=== PATIENT | male | born 1940 | race Caucasian/White ===

== ENCOUNTER → 2019-04-27 08:27 | Outpatient (BNVA) | payer OTHER, SELFPAY | PROVIDERS: Family Provider Emergency Medicine Emergency Medical Services; PCP Emergency Medicine Emergency Medical Services; Visit Provider Urology | DX: R97.20 Elevated prostate specific antigen [PSA] (principal); R33.9 Retention of urine, unspecified; N40.1 Benign prostatic hyperplasia with lower urinary tract symptoms; N13.8 Other obstructive and reflux uropathy; G20 Parkinson's disease | CPT/HCPCS: 81001; 84153 ==

== ENCOUNTER → 2019-10-27 08:41 | Outpatient (BNVA) | payer OTHER, SELFPAY | PROVIDERS: Family Provider Emergency Medicine Emergency Medical Services; PCP Emergency Medicine Emergency Medical Services; Visit Provider Urology | DX: R97.20 Elevated prostate specific antigen [PSA] (principal); N40.1 Benign prostatic hyperplasia with lower urinary tract symptoms; N13.8 Other obstructive and reflux uropathy | CPT/HCPCS: 81001; 84153 ==

== ENCOUNTER 2020-07-15 10:34 | Outpatient (CLI) | payer OTHER, SELFPAY ==
--- NOTE | 2020-07-15 10:38 | MR_ITS ---
WS: [id number] MRI LUMBAR SPINE NONCONTRAST HISTORY: LOW BACK PAIN RADIATING TO HIP COMPARISON: None available. TECHNIQUE: Sagittal and axial multisequence imaging is submitted. Mild increase in the thoracic kyphosis. Straightening of the normal lumbar lordosis. C3 retrolisthesi s by 2 mm. Mild disc space narrowing and desiccation throughout the lumbar spine. No significant desiccation at the L3-4 level within additional marrow edema in the endplates. Endplat e osteophytes and moderate disc desiccation. No acute fractures. Conus terminates normally at L1-2 disc level. L1-L2: Mild annular disc bulging and facet joint arthritis. Very mild foraminal narrowing. L2-L3: Mild annular disc bulge with osteophytic ridging and facet arthritis. Mild subarticular forami nal stenosis. L3-L4: Diffuse moderate annular disc bulging with osteophytic ridging. Moderate bilateral facet joint arthritis with ligamentum flavum hypertrophy. Mild central stenosis with moderate subarticular reces s and bilateral foraminal stenosis. L4-L5: Diffuse moderate annular disc bulging and osteophytic ridging. Moderate ligamentum flavum dise ase and facet arthritis. Mild central with moderate bilateral subarticular recess and foraminal steno sis. L5-S1: Diffuse annular disc bulging and osteophytic ridging. There is a RIGHT paracentral disc osteop hyte complex encroaching upon the ventral thecal sac. Complete effacement of fat within the LEFT fora men. Moderate to severe RIGHT foraminal stenosis. Mild central stenosis. Mild atherosclerosis aorta. Prostate gland is enlarged. MR/MR lumbar spine wo con* [id number] IMPRESSION: 1. 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 2. Moderate to severe bilateral foraminal stenosis at L5-S1, greatest on the L EFT. 3. Mild central with moderate bilateral subarticular recess and foraminal sten osis at L3-4 and L4-5 due to combination of disc and facet disease and osteophy tosis. 4. Mild bilateral subarticular foraminal stenosis at L2-3.
== END 2020-07-15 10:35 | disposition home or self-care (01) ==
LOC: RADSHAW 10:37
PROVIDERS: Family Provider Emergency Medicine Emergency Medical Services; PCP Emergency Medicine Emergency Medical Services; Visit Provider Emergency Medicine Emergency Medical Services
DX: M54.5 Low back pain (principal); M54.16 Radiculopathy, lumbar region; M51.36 Other intervertebral disc degeneration, lumbar region; M48.07 Spinal stenosis, lumbosacral region; M48.061 Spinal stenosis, lumbar region without neurogenic claudication
CPT/HCPCS: 72148

== ENCOUNTER → 2020-08-03 14:41 | Outpatient (BNVA) | payer OTHER, SELFPAY | PROVIDERS: Family Provider Emergency Medicine Emergency Medical Services; PCP Emergency Medicine Emergency Medical Services; Referring Provider Family Medicine; Visit Provider Specialist | DX: M16.0 Bilateral primary osteoarthritis of hip (principal) | CPT/HCPCS: 73502 ==

== ENCOUNTER 2020-08-04 09:20 | Outpatient (CLI) | payer OTHER, SELFPAY ==
--- NOTE | 2020-08-04 09:30 | USCV_ITS ---
Gerard Najera Age: 80 Gender: M : 1940 Exam Date: 08/04/2020 09:59 Ordering Phys: Ismael Lau DO Technologist: Christopher Parekh Exam Location: [facility] Indication: TIA Risk Factors: None Previous Vascular Surgery: None Right Brachial BP: / Left Brachial BP: / Right Left Velocity (cm/s) Spectral Plaque Velocity (cm/s) Spectral Plaque Syst/Diast Broadening Syst/Diast Broadening 53.20/ 13.30 Prox CCA 99.00 / 24.40 94.40/ 23.90 Mid CCA 66.40 / 12.20 91.00/ 18.20 Distal CCA 53.70 / 12.80 Hetro 40.80/ 12.10 Prox ICA 55.30 / 11.20 Hetro 45.00/ 13.00 Mid ICA 54.50 / 16.80 Hetro 88.50/ 25.60 Distal ICA 64.10 / 18.40 136.50 ECA 117.10 0.98 ICA/CCA 0.65 Antegrade Vertebral Antegrade 39.30/ 6.40 cm/s 43.00/ 9.40 cm/s Tri Subclavian Tri 109.8 0 CONCLUSIONS Right ICA stenosis <50%. Mild atheromatous plaque right carotid bulb/ICA. Left ICA stenosis <50%. Mild atheromatous plaque left carotid bulb/ICA. Normal antegrade Doppler flow noted in the right vertebral artery. Normal antegrade Doppler flow noted in the left vertebral artery. Miguel Amado MD (Electronically Signed) Final Date: 04 August 2020 16:35 S
== END 2020-08-04 09:21 | disposition home or self-care (01) ==
LOC: RAD 09:22
PROVIDERS: PCP Emergency Medicine Emergency Medical Services; Visit Provider Emergency Medicine Emergency Medical Services
DX: G45.9 Transient cerebral ischemic attack, unspecified (principal)
CPT/HCPCS: 93880

== ENCOUNTER 2020-08-15 10:52 | Outpatient (RCR) | payer OTHER, SELFPAY | END 2020-08-31 23:59 | disposition home or self-care (01) | LOC: SPT 10:52 | PROVIDERS: PCP Emergency Medicine Emergency Medical Services; Referring Provider Specialist; Visit Provider Specialist | DX: M70.61 Trochanteric bursitis, right hip (principal) | CPT/HCPCS: 97110; 97161 ==

== ENCOUNTER 2020-09-01 06:00 | Outpatient (RCR) | payer OTHER, SELFPAY | END 2020-10-01 23:59 | disposition home or self-care (01) | LOC: SPT 06:00 | PROVIDERS: PCP Emergency Medicine Emergency Medical Services; Referring Provider Specialist; Visit Provider Specialist | DX: M70.61 Trochanteric bursitis, right hip (principal) | CPT/HCPCS: 97110 ==

== ENCOUNTER → 2020-10-26 08:13 | Outpatient (BNVA) | payer OTHER, SELFPAY | PROVIDERS: PCP Emergency Medicine Emergency Medical Services; Visit Provider Urology | DX: N13.8 Other obstructive and reflux uropathy (principal); N40.1 Benign prostatic hyperplasia with lower urinary tract symptoms; R97.20 Elevated prostate specific antigen [PSA]; R33.9 Retention of urine, unspecified; R35.1 Nocturia | CPT/HCPCS: 81003; G0103 ==

== ENCOUNTER 2021-10-25 13:18 | Outpatient (CLI) | payer OTHER, MEDICARE, SELFPAY ==
[2021-10-25 14:24] LABS: Prostate Specific AG Urology 3.15 ng/mL (0-4)
== END 2021-10-25 13:19 | disposition home or self-care (01) ==
PROVIDERS: PCP Emergency Medicine Emergency Medical Services; Visit Provider Urology
DX: R97.20 Elevated prostate specific antigen [PSA] (principal)
CPT/HCPCS: 84153

== ENCOUNTER → 2021-10-26 08:19 | Outpatient (BNVA) | payer OTHER, MEDICARE, SELFPAY | PROVIDERS: PCP Emergency Medicine Emergency Medical Services; Visit Provider Urology | DX: N40.1 Benign prostatic hyperplasia with lower urinary tract symptoms (principal); N13.8 Other obstructive and reflux uropathy | CPT/HCPCS: 51798; 81003; 99213 ==

== ENCOUNTER → 2022-02-14 12:37 | Outpatient (BNVA) | payer OTHER, MEDICARE, SELFPAY | PROVIDERS: PCP Emergency Medicine Emergency Medical Services; Visit Provider Urology | DX: N40.1 Benign prostatic hyperplasia with lower urinary tract symptoms (principal); R31.0 Gross hematuria; N13.8 Other obstructive and reflux uropathy; I95.1 Orthostatic hypotension; R35.1 Nocturia; G20 Parkinson's disease; R97.20 Elevated prostate specific antigen [PSA] | CPT/HCPCS: 51741; 51798; 52000; 81003; 99213 ==

== ENCOUNTER → 2022-03-06 13:30 | Outpatient (BNVA) | payer OTHER, SELFPAY | PROVIDERS: PCP Emergency Medicine Emergency Medical Services; Visit Provider Internal Medicine Cardiovascular Disease | DX: I95.1 Orthostatic hypotension (principal); R94.31 Abnormal electrocardiogram [ECG] [EKG]; G20 Parkinson's disease; I49.3 Ventricular premature depolarization; I44.4 Left anterior fascicular block | CPT/HCPCS: 93005; 99214 ==

== ENCOUNTER 2022-11-14 08:36 | Emergency (ER) | payer OTHER, SELFPAY ==
[2022-11-14] VITALS (34 sets, daily range): BP systolic 140–218; BP diastolic 73–108; PULSE 68–83; RESP 16; TEMP 36.8; O2SAT 95–100
--- NOTE | 2022-11-14 09:06 | PC.PHAR ---
[facility]ED [facility] AT [facility]03 AM FOR CUR[facility] MED LIST
--- NOTE | 2022-11-14 09:09 | ED_ITS ---
HPI - Male Genitourinary General: Chief complaint: Urogenital-Male Stated complaint: [facility], blood in urine Time Seen by Provider: 11/14/22 08:39 History of Present Illness: 82-year-old male presents emergency department with his present chief complaint of ongoing hematuria has been present over the last several months per the patient has a known history of dementia as well as Parkinson's. Patient is on no blood thinning agents apparently he started bleeding about 2 m onths ago [facility] which she was seeing Dr. Garduno which is currently being worked up to be seen by urology patient does have a known history of benign prostatic hypertrophy that he is on Flomax for. Per the last night the patient did develop some clots which she had mild difficulty with urination patient is on no blood thinning agents. Per the patient has been checked out twice previously in which the urinalysis did not reveal any other underlying infection . Patient does not have any known history of underlying kidney disease or any other associated symptoms. Patient presents to the ER with present for further assessment and management. Associated symptoms: Reports hematuria; Deny nausea or vomiting Review of Systems General: Reports: 10 or more systems reviewed and unremarkable except in HPI and below Const: Denies: fever(s), chills, fatigue or malaise Eyes: Denies: change in vision or blurry vision Card: Denies: chest pain or palpitations Resp: Denies: dyspnea or productive cough GI: Denies: abdominal pain, nausea or vomiting : Reports: urinary urgency, urinary hesitancy and hematuria; Denies: flank pain Musc: Denies: extremity pain or extremity swelling Skin/Breast: Denies: rash or pruritus Neuro: Denies: headache(s) Psych: Denies: anxiety or depression Bishop/Lymph: Denies: easy bleeding All/Imm: Denies: urticaria, throat swelling or facial swelling PFSH ED PFSH: Medical History Abnormal PSA BPH with urinary obstruction Hypotension (arterial) Incomplete bladder emptying Parkinsons Syncopal episodes Surgical History History of inguinal hernia repair, bilateral History of knee replacement Family History Father Motor vehicle accident Mother , at age 91 Dementia Parkinsons disease Grandfather Cancer Denies family history of Diabetes CAD (coronary artery disease) Clotting disorder Chronic kidney disease (CKD) Suicide Anesthesia complication Bleeding disorder Lung disease Stroke Social History Smoking and tobacco status: never smoked Alcohol intake: current Alcohol intake frequency: holidays/special occasions only Substance/Drug Use: never Adopted: No Caregiver/support person: No Lives independently: No Household members: spouse Marital status: Current occupational status: retired Current gender identity: Male Physical Exam Const: COMMON NORMALS: no acute distress (Patient appears nontoxic appears in no obvious acute distress), patient oriented x3 and healthy appearing HENMT: COMMON NORMALS: normocephalic and atraumatic HEAD & SCALP: normocephalic and atraumatic Eye: COMMON NORMALS: Equal, round and reactive pupils present and EOMs intact bilaterally PUPIL: Yes Equal, round and reactive pupils present Neck/C-Spine: COMMON NORMALS: full ROM, supple and no JVD Lymph: LYMPHATIC: no lymphadenopathy noted Chest: COMMONS NORMALS: normal inspection of the chest and normal palpation of entire chest wall Resp: COMMON NORMALS: normal respiratory effort, No retractions and clear to auscultation bilaterally EFFORT & INSPECTION: Yes able to speak in complete sentences and Yes symmetric chest movement AUSCULTATION: clear to auscultation bilaterally Cardio: COMMON NORMALS: no JVD, regular rate and regular rhythm RATE: regular rate RHYTHM: regular rhythm GI: COMMON NORMALS: Normal to inspection, nondistended, normoactive bowel sounds present, Soft to palpation and non-tender INSPECTION: Yes normal to inspection PALPATION: Yes Soft to palpation : COMMON NORMALS: Yes no CVA tenderness BLADDER/KIDNEY EXAM: Yes no CVA tenderness Back/Pelvis: COMMON NORMALS: no CVA tenderness Extremity: COMMON NORMALS: normal to inspection and full ROM Neuro: COMMON NORMALS: patient oriented x3, CN's II-XII intact bilaterally, moves all extremities and no focal motor deficits Psych: COMMON NORMALS: mental status grossly normal, Normal thought process present, cooperative and normal affect THOUGHT PROCESS: Normal thought process present Skin: COMMON NORMALS: no rashes or lesions noted GENERAL SKIN EXAM: no rashes or lesions noted Course Vital Signs: Vital signs: Vital Signs Temperature 98.2 F 11/14/22 08:48 Pulse Rate 68 11/14/22 13:38 Respiratory Rate 16 11/14/22 10:08 Blood Pressure 185/96 11/14/22 14:20 Pulse Oximetry 100 11/14/22 14:20 Oxygen Delivery Me thod Room Air 11/14/22 13:38 MDM - Male Medical Decision Making Due to patient's symptoms and condition lab work and imaging will be obtained we will continue to follow. Bladder scan will also be obtained to further rule out any obvious acute urinary obstruction. Patient was not found to be obstructed retain urine is less than 50 mL patient was found have a urinary tract infection on CT imaging there does not appear to be a incidental liver cyst recommend ultrasound in which additionally there is concerns of large prostamegaly patient was provided a dose of Rocephin while in the emergency department advised prompt follow-up outpatient with primary care for further evaluation and management of the patient's prostate patient be all started on some outpatient antibiotics, advised to return the interim if he the patient's symptoms persist or worse. Patient did require several doses of antihypertensive to improve his blood pressure which resulted blood pressure was 140s over 70s I believe that this is due to patient having Parkinson's disease with tonic muscular activity. Advised that he would need to further follow-up with his primary care doctor for further evaluation of chronic antihypertensives if this continues patient otherwise re mained in stable condition with no complaints of any chest pain shortness of breath or palpitations. Lab Data 11/14/22 09:22 11/14/22 09:22 Laboratory Results WBC 5.63 10^3/uL (3.29-11.43) 11/14/22 09: RBC 4.49 10^6/uL (3.85-5.65) 11/14/22 09:22 Hgb 13.20 g/dL (11.27-16.99) 11/14/22 09:22 Hct 39.5 % (37-53) 11/14/22 09:22 MCV 88.0 fl (82-101) 11/14/22 09:22 MCH 29.4 pg (27-33) 11/14/22 09: MCHC 33.4 g/dL (30-55) 11/14/22 09: RDW 13.0 % (12.1-15.1) 11/14/22 09: Plt Count 182 10^3/cmm (157-399) 11/14/22 09:22 MPV 10.9 fL (7.4-10.4) H 11/14/22 09:22 Neut % (Auto) 66.4 % 11/14/22 09:22 Lymph % (Auto) 21.0 % 11/14/22 09:22 Stan[place]aus % (Auto) 7.6 % 11/14/22 09:22 Eos % (Auto) 3.9 % 11/14/22 09:22 Baso % (Auto) 0.7 % 11/14/22 09: Neut # (Auto) 3.74 10^3/uL (1.8-7.7) 11/14/22 09: Lymph # (Auto) 1.2 10^3/uL (0.8-4.8) 11/14/22 09:22 Stan[place]aus # (Auto) 0.4 10^3/uL (0.2-0.9) 11/14/22 09: Eos # (Auto) 0.2 10^3/uL (0.0-0.8) 11/14/22 09:22 Baso # (Auto) 0.0 10^3/uL (0.0-0.1) 11/14/22 09: Nucleated RBC % (auto) 0 % 11/14/22 09: Nucleated RBCs # 0.0 /100WBC 11/14/22 09:22 Sodium 141 mmol/L (136-145) 11/14/22 09: Potassium 4.0 mmol/L (3.5-5.1) 11/14/22 09: Chloride 105 mmol/L (98-107) 11/14/22 09: Carbon Dioxide 28 mmol/L (22-29) 11/14/22 09: Anion Gap 12.0 (5-19) 11/14/22 09: BUN 21 mg/dL (8-23) 11/14/22 09:22 Creatinine 0.8 mg/dL (0.7-1.2) 11/14/22 09:22 GFR Calculation Not Reportable 11/14/22 09:22 Glucose 93 mg/dL (65-115) 11/14/22 09:22 Calculated Osmolality 295 mOsm/kg (285-295) 11/14/22 09: Calcium 9.1 mg/dL (8.5-10.5) 11/14/22 09: Total Bilirubin 0.3 mg/dL (0.15-1.2) 11/14/22 09:22 AST 15 U/L (0-40) 11/14/22 09: ALT < 5 U/L (0-41) 11/14/22 09: Alkaline Phosphatase 40 U/L (40-130) 11/14/22 09: Total Protein 6.2 g/dL (6.6-8.7) L 11/14/22 09: Albumin 3.9 g/dL (3.5-5.2) 11/14/22 09: Globulin 2.3 g/dL (1.3-4.6) 11/14/22 09: Urine Color Red (Yellow) A 11/14/22 10:52 Urine Appearance Bloody (CLEAR) A 11/14/22 10:52 Urine pH 7 (5-7) 11/14/22 10:52 Ur Specific Mulberry 1.010 (1.005-1.030) 11/14/22 10:52 Urine Protein 1+ (Negative) H 11/14/22 10:52 Urine Glucose (UA) Norm (Normal) 11/14/22 10:52 Urine Ketones 1+ (Negative) H 11/14/22 10:52 Urine Blood 3+ (Negative) H 11/14/22 10:52 Urine Nitrate Negative (Negative) 11/14/22 10:52 Urine Bilirubin Neg (Negative) 11/14/22 10:52 Urine Urobilinogen Norm mg/dL (Negative) 11/14/22 10:52 Ur Leukocyte Esterase Trace (Negative) H 11/14/22 10:52 Urine RBC >100 /hpf (0-2) H 11/14/22 10:52 Urine WBC 5-10 /hpf (0-5) H 11/14/22 10:52 Ur Squamous Epith Cells 0-4 /hpf (0-5) H 11/14/22 10:52 Amorphous Sediment Not Reportable 11/14/22 10:52 Urine Bacteria 1+ /hpf (NONE) H 11/14/22 10:52 Discharge Plan Discharge Patient Disposition: Home Clinical Impression: Gross hematuria, Urinary tract infection, Enlarged prostate, Essential hypertension Condition: Stable Prescriptions: New levofloxacin 500 mg tablet 500 mg PO DAILY 7 Days Qty: 7 0RF No Action finasteride 5 mg tablet 5 mg PO DAILY cholecalciferol (vitamin D3) 2,000 unit tablet 2,000 unit PO DAILY carbidopa-levodopa 25-100 mg tablet 1 tab PO TID zinc 50 mg tablet 50 mg PO DAILY minocycline 50 mg capsule 50 mg PO DAILY rasagiline 1 mg tablet 1 mg PO DAILY carbidopa-levodopa 25-100 mg tablet extended release 1 tab PO TID ibuprofen 200 mg Tablet 200 mg PO Q6H PRN (Reason: Pain) Discharge Orders: Discharge ED (Routine); Ordered 11/14/22 Ordered By: Ceferino Hathaway Referrals: Ismael Lau DO [Primary Care Provider] - 1-3 days (For further referral to urology and repeat lab work to determine improvement of the patient's UTI) Discharge Diet: Regular Discharge Activity: Resume usual activity Patient Instructions: Hematuria - Male, Enlarged Prostate (BPH) (ED), Urinary Tract Infection in Men (ED), Hypertension (ED), Urinary Tract Infection in Older Adults (ED) Activity Restrictions/Additional Instructions: Please encourage drinking more water to reduce likelihood of blood clots forming and causing obstruction please further follow-up with your primary care doctor 1 to 2 days for further assessment and management and evaluation of your enlarged prostate as well as blood in your urine, as well as your high blood pressure as witnessed in the emergency department. Please take antibiotics as prescribed and please return in the interim if any of your symptoms persist or worse Coding Level of Care Code ED [employer] Consultant for Rajendra Stoll
[2022-11-14] MEDS: sodium chloride 0.9% 500 ML IV (09:27)
[2022-11-14 09:37] LABS: Basophils % 0.7 %; Eosinophils # 0.2 10^3/uL (0.0-0.8); Eosinophils % 3.9 %; Hematocrit 39.5 % (37-53); Lymphocytes # 1.2 10^3/uL (0.8-4.8); Mean Corpuscular HGB Conc 33.4 g/dL (30-55); Mean Corpuscular Hemoglobin 29.4 pg (27-33); Mean Platelet Volume 10.9 fL (7.4-10.4); Monocytes # 0.4 10^3/uL (0.2-0.9); Monocytes % 7.6 %; Neutrophils # 3.74 10^3/uL (1.8-7.7); Neutrophils % 66.4 %; Nucleated Red Blood Cells % 0 %; Platelet Count 182 10^3/cmm (157-399); Red Blood Count 4.49 10^6/uL (3.85-5.65); White Blood Count 5.63 10^3/uL (3.29-11.43)
--- NOTE | 2022-11-14 09:47 | CT_ITS ---
WS: [id number] CT ABDOMEN AND PELVIS NONCONTRAST HISTORY: hematuria TECHNIQUE: Imaging performed through the abdomen and pelvis. Coronal and sagittal reformats are submi tted. All CT scans at [facility] use at least one of these dose optimization techniques: auto mated exposure control; mA and/or kV adjustment per patient size (includes targeted exams where dose is matched to clinical indication); or iterative reconstruction. DLP: 464.22 mGy.cm COMPARISON: None available. Lower thorax: Small hiatal hernia. Otherwise negative. Mild cardiomegaly. Dependent changes Liver: Normal size liver. There are multiple low-attenuation masses within the liver. These are proba yuli cysts. The largest mass in the LEFT lobe of the liver measures 6.1 x 7.9 cm and has increased in size since 2014. Helsel units suggest this is not a simple cyst. Gallbladder: Normal gallbladder. No pericholecystic fluid or cholelithiasis. No gallbladder wall thic kening. Pancreas: Moderate diffuse atrophy. Spleen: Normal. Adrenal glands: Normal. No mass. Right kidney: Extrarenal pelvis. No obstruction. Left kidney: No obstruction. 5 mm nonobstructing calcification in the upper pole. There is an extrare nal pelvis. No ureteral calcification. Upper pole LEFT renal cyst 4.0 cm. Aorta: Moderate atherosclerotic plaque within the aorta. No aneurysm. No free fluid, intraperitoneal air or significant lymphadenopathy. GI tract: Nondistended stomach. No small bowel obstruction. Marked tortuosity of the colon with longs tanding constipation and fecal retention. No acute diverticulitis. Abdominal wall: Negative. No hernia. Pelvis: Markedly enlarged prostate gland encroaching into the urinary bladder and displacing the blad meghna. Prostate measures at least 5.9 x 6.0 cm. There is mild diffuse bladder wall thickening which is slightly asymmetric. Asymmetric thickening of the bladder wall on the RIGHT and at the base near the prostate encroachment. Osseous structures: Advanced degenerative changes throughout the lumbar spine. IMPRESSION: 1. No renal obstruction or hydronephrosis. 2. Nonobstructing LEFT renal calcification and a LEFT renal cyst. 3. Markedly enlarged prostate gland encroaching into the urinary bladder. There is asymmetric bladde r wall thickening. Uroepithelial neoplasm is not excluded. Cystoscopy recommended. Hepatic cyst. 4. There is a large low-attenuation mass in the LEFT lobe of the liver with Hounsfield units being s lightly elevated. This is probably a complex cyst. This should be evaluated by ultrasound to confirm benign cyst. 5. Fransico constipation.
[2022-11-14 10:01] LABS: Alanine Aminotransferase < 5 U/L (0-41); Albumin Level 3.9 g/dL (3.5-5.2); Alkaline Phosphatase 40 U/L (40-130); Aspartate Amino Transferase 15 U/L (0-40); Blood Urea Nitrogen 21 mg/dL (8-23); Calcium 9.1 mg/dL (8.5-10.5); Carbon Dioxide 28 mmol/L (22-29); Chloride 105 mmol/L (98-107); Globulin 2.3 g/dL (1.3-4.6); Glucose 93 mg/dL (65-115); Osmolality Calculated 295 mOsm/kg (285-295); Sodium 141 mmol/L (136-145); Total Bilirubin 0.3 mg/dL (0.15-1.2); Total Protein 6.2 g/dL (6.6-8.7)
--- NOTE | 2022-11-14 10:46 | US_ITS ---
WS: [id number] RIGHT UPPER QUADRANT ULTRASOUND HISTORY: liver cyst on ct COMPARISON: 11/14/2022 Liver: 14.0 cm in length. Liver is normal size. Multiple hepatic cysts are identified. Recently descr ibed indeterminant mass in the LEFT lobe of the liver is a cyst measuring 8.6 x 6.7 cm. This is a sim ple cyst with good through transmission. No bile duct dilatation. Normal common bile duct. Portal Vein: Normal hepatopetal flow with monophasic waveform. Gallbladder not visualized. Pancreas: Negative. Right kidney: 8.9 cm in length. Mild increased echogenicity consistent with chronic medical renal dis ease. No hydronephrosis Aorta and IVC: Unremarkable abdominal aorta and IVC. No ascites. IMPRESSION: 1. Hepatic cyst. The enlarging cyst seen on recent CT is a benign cyst. No solid hepatic masses. 2. No bile duct dilatation. 3. RIGHT chronic medical renal disease. No hydronephrosis.
[2022-11-14 11:16] LABS: Add Urine Microscopic? YES; Bilirubin Urine Neg (Negative); Blood Urine 3+ (Negative); Glucose Urine UA Norm (Normal); Ketones Urine 1+ (Negative); Leukocyte Esterase Urine Trace (Negative); Nitrate Urine Negative (Negative); Protein Urine 1+ (Negative); Urine Appearance Bloody (CLEAR); Urine Color Red (Yellow); Urobilinogen Urine Norm (Negative); pH Urine 7 (5-7)
[2022-11-14 11:17] LABS: Add Urine Culture? Yes; Bacteria Urine 1+ /hpf; RBC Urine >100 /hpf (0-2); Squamous Epithelial Cell Urine 0-4 /hpf (0-5)
[2022-11-14] MEDS: cefTRIAXone 1,000 MG in sodium chloride 0.9% (plus) 50 ML 100 MG IV (12:18)
[2022-11-14] MEDS: hyDRALAzine 20 mg/mL INJ 1 mL 5 MG IVP (13:35)
[2022-11-14] MEDS: hyDRALAzine 20 mg/mL INJ 1 mL 10 MG IVP (14:17)
== END 2022-11-14 15:20 | disposition home or self-care (01) ==
PROVIDERS: Emergency Provider Emergency Medicine; PCP Emergency Medicine Emergency Medical Services
DX: N39.0 Urinary tract infection, site not specified (principal); R31.0 Gross hematuria; N40.0 Benign prostatic hyperplasia without lower urinary tract symptoms; I10 Essential (primary) hypertension; G20 Parkinson's disease
CPT/HCPCS: 51798; 74176; 76705; 80053; 81001; 85025; 87086; 96365; 96375; 96376; 99285; J0360; J0696; J7040

== ENCOUNTER 2023-01-06 23:50 | Inpatient (IN) | payer OTHER, SELFPAY ==
[2023-01-06 23:51] VITALS: BP 173/106; PULSE 81; RESP 16; TEMP 36.7; O2SAT 100; BMI 25.8
[2023-01-07] VITALS (8 sets, daily range): BP systolic 145–202; BP diastolic 73–98; PULSE 75–94; RESP 17–19; TEMP 36.4–36.9; O2SAT 95–99
--- NOTE | 2023-01-07 00:21 | XRR_ITS ---
PROCEDURE INFORMATION: Exam: XR Left Tibia and Fibula Exam date and time: 01/07/2023 12:38 AM Age: 82 years old Clinical indication: Injury or trauma; Blunt trauma; Lower leg; Patient HX: Witnessed fall three days ago. C/O left leg numbness and unable to bear weight. History of parkinson's. ; Additional info: Fall injury TECHNIQUE: Imaging protocol: Radiologic exam of the left tibia and fibula. Views: 2 views. COMPARISON: No relevant prior studies available. FINDINGS: Bones/joints: Moderate severity multi compartment left knee joint space narrowing. Marginal osteophyte spurring. Negative for acute fractures. Soft tissues: Normal. Vasculature: Relatively diffuse calcified atherosclerotic wall plaques of the arterial system. XR/XR tibia fibula LT 2V [id number] IMPRESSION: Negative for fracture.
--- NOTE | 2023-01-07 00:21 | CTR_ITS ---
PROCEDURE INFORMATION: Exam: CT Lumbar Spine Without Contrast Exam date and time: 01/07/2023 1:55 AM Age: 82 years old Clinical indication: Injury or trauma; Blunt trauma (contusions or hematomas); Patient HX: Witnessed fall three days ago. C/O left leg numbness and unable to bear weight. History of parkinson's. ; Additional info: Fall lle numbness TECHNIQUE: Imaging protocol: Computed tomography of the lumbar spine without contrast. Radiation optimization: All CT scans at this facility use at least one of these dose optimization techniques: automated exposure control; mA and/or kV adjustment per patient size (includes targeted exams where dose is matched to clinical indication); or iterative reconstruction. REPORTING DATA: Count of CT and Cardiac NM exams in prior 12 months: This patient has received [address] and 0 known cardiac nuclear medicine studies in the 12 months prior to the current study. COMPARISON: MR lumbar spine wo con* [id number] 07/15/2020 11:00 AM RADIATION DOSE METRICS: Total DLP (mGy-cm): 1248.26 FINDINGS: Bones/joints: The lumbar spine demonstrates marked discogenic and apophyseal joint degenerative changes at multiple levels. Negative for acute lumbar spine fracture. Unremarkable lumbar spine alignment. Multilevel broad posterior intervertebral disc bulges. No levels of severe spinal canal stenosis or neural foraminal stenosis identified. Liver: Large simple cyst in the left hepatic lobe with multiple smaller simple hepatic cyst also in the left lobe and caudate lobe. Kidneys and ureters: Small nonobstructing left kidney upper pole stone. Simple exophytic left upper pole renal cortical cyst measures 4 cm x 4 cm. Bilateral collecting systems are mildly distended. Urinary bladder: Distended bladder partially included in the field of view. Soft tissues: Unremarkable. CT/CT lumbar spine wo con* [id number] IMPRESSION: Negative for acute lumbar spine pathology. COMMENTS: Consistent with the [employer]'s Incidental Findings Committee white paper (J Am Jomar Radiol 2018): Any incidental renal lesion less than 1 cm or classified as too small to characterize, or any incidental cystic renal lesion characterized as simple-appearing, is likely benign. No follow-up imaging is recommended for these lesions per consensus recommendations based on imaging criteria.
--- NOTE | 2023-01-07 00:21 | CTR_ITS ---
PROCEDURE INFORMATION: Exam: CT Head Without Contrast Exam date and time: 01/07/2023 1:52 AM Age: 82 years old Clinical indication: Injury or trauma; Blunt trauma (contusions or hematomas); Patient HX: Witnessed fall three days ago. C/O left leg numbness and unable to bear weight. History of parkinson's. ; Additional info: Lle weakness TECHNIQUE: Imaging protocol: Computed tomography of the head without contrast. Radiation optimization: All CT scans at this facility use at least one of these dose optimization techniques: automated exposure control; mA and/or kV adjustment per patient size (includes targeted exams where dose is matched to clinical indication); or iterative reconstruction. REPORTING DATA: Count of CT and Cardiac NM exams in prior 12 months: This patient has received [address] and 0 known cardiac nuclear medicine studies in the 12 months prior to the current study. COMPARISON: No relevant prior studies available. RADIATION DOSE METRICS: Total DLP (mGy-cm): 1082.04 FINDINGS: Brain: Normal. No hemorrhage. Unremarkable white matter. No mass effect. Cerebral ventricles: No ventriculomegaly. Paranasal sinuses: Visualized sinuses are unremarkable. No fluid levels. Mastoid air cells: Visualized mastoid air cells are well aerated. Bones/joints: Unremarkable. No acute fracture. Soft tissues: Unremarkable. CT/CT head wo con* [id number] IMPRESSION: No acute intracranial abnormality.
--- NOTE | 2023-01-07 00:21 | XRR_ITS ---
PROCEDURE INFORMATION: Exam: XR Chest Exam date and time: 01/07/2023 12:30 AM Age: 82 years old Clinical indication: Injury or trauma; Blunt trauma (contusions or hematomas); Patient HX: Witnessed fall three days ago. C/O left leg numbness and unable to bear weight. History of parkinson's. ; Additional info: Weakness TECHNIQUE: Imaging protocol: Radiologic exam of the chest. Views: 1 view. COMPARISON: CR XR chest 1V [id number] 09/23/2017 1:10 PM FINDINGS: Lungs: Coarse reticular interstitial lung changes bilaterally. Lungs are hypoaerated without consolidation. Pleural spaces: Unremarkable. No pleural effusion. No pneumothorax. Heart/Mediastinum: Unremarkable. No cardiomegaly. Bones/joints: Bones are demineralized without acute thoracic fracture. XR/XR chest 1V portable [id number] IMPRESSION: Negative for acute chest pathology.
--- NOTE | 2023-01-07 00:21 | XRR_ITS ---
PROCEDURE INFORMATION: Exam: XR Left Femur Exam date and time: 01/07/2023 12:38 AM Age: 82 years old Clinical indication: Injury or trauma; Blunt trauma; Thigh or upper leg; Patient HX: Witnessed fall three days ago. C/O left leg numbness and unable to bear weight. History of parkinson's. ; Additional info: Fall injury TECHNIQUE: Imaging protocol: Radiologic exam of the left femur. Views: 2 views. COMPARISON: CT kidney stone [id number] 11/14/2022 9:55 AM FINDINGS: Bones/joints: Mild severity narrowing of the left hip joint space. Moderate severity narrowing of the left knee joint space. Marginal osteophyte spurring of the joint spaces. Negative for acute fractures. Negative for dislocation. Soft tissues: Unremarkable. Vasculature: Scattered atherosclerosis. XR/XR femur LT min 2V* [id number] IMPRESSION: No acute left femur pathology.
--- NOTE | 2023-01-07 00:21 | CTR_ITS ---
PROCEDURE INFORMATION: Exam: CT Pelvis Without Contrast; Skeletal Exam date and time: 01/07/2023 1:59 AM Age: 82 years old Clinical indication: Injury or trauma; Blunt trauma (contusions or hematomas); Hip; Prior surgery; Surgery date: 6+ months; Surgery type: Inguinal hernia repair; Patient HX: Witnessed fall three days ago. C/O left leg numbness and unable to bear weight. History of parkinson's. ; Additional info: Fall lle numbness TECHNIQUE: Imaging protocol: Computed tomography of the pelvis without contrast. Exam focused on the skeleton. Radiation optimization: All CT scans at this facility use at least one of these dose optimization techniques: automated exposure control; mA and/or kV adjustment per patient size (includes targeted exams where dose is matched to clinical indication); or iterative reconstruction. REPORTING DATA: Count of CT and Cardiac NM exams in prior 12 months: This patient has received [address] and 0 known cardiac nuclear medicine studies in the 12 months prior to the current study. COMPARISON: CT kidney stone [id number] 11/14/2022 9:55 AM RADIATION DOSE METRICS: Total DLP (mGy-cm): 980.04 FINDINGS: Urinary bladder: Bladder wall is mildly thickened. Small scattered nodular areas of bladder wall thickening are seen in multiple areas. Reproductive: Moderate to severe prostatomegaly with heterogeneity of the prostate gland. Bones/joints: Negative for acute pelvic fracture. Negative for lytic bone lesion. Negative for dislocation. Moderate severity bowel hip joint space narrowing with mild marginal osteophyte spurring. Disc height loss and facet joint arthropathy in the lower lumbar spine. Soft tissues: Unremarkable. CT/CT bony pelvis [id number] IMPRESSION: 1. Negative for pelvic fracture. 2. Unusual multiple small areas of bladder wall nodular thickening. Cannot exclude the possibility of multiple intraluminal polypoid bladder masses. Correlate for hematuria. 3. Prompt outpatient urology consultation is recommended. 4. Prostatomegaly.
[2023-01-07 00:54] LABS: INR 0.86 (0.8-1.2)
[2023-01-07 00:55] LABS: Partial Thromboplastin Time 29.1 SECONDS (23.9-36.7)
[2023-01-07 00:57] LABS: Basophils % 0.5 %; Eosinophils # 0.2 10^3/uL (0.0-0.8); Eosinophils % 3.9 %; Lymphocytes # 1.7 10^3/uL (0.8-4.8); Lymphocytes % 28.7 %; Mean Corpuscular HGB Conc 32.9 g/dL (30-55); Mean Corpuscular Hemoglobin 29.5 pg (27-33); Mean Corpuscular Volume 89.8 fl (82-101); Mean Platelet Volume 11.6 fL (7.4-10.4); Monocytes # 0.6 10^3/uL (0.2-0.9); Neutrophils # 3.34 10^3/uL (1.8-7.7); Neutrophils % 56.7 %; Nucleated Red Blood Cells % 0 %; Platelet Count 175 10^3/cmm (157-399); Red Blood Count 5.01 10^6/uL (3.85-5.65); Red Cell Distribution Width 13.2 % (12.1-15.1); White Blood Count 5.89 10^3/uL (3.29-11.43)
[2023-01-07 01:02] LABS: Alanine Aminotransferase < 5 U/L (0-41); Albumin Level 4.3 g/dL (3.5-5.2); Alkaline Phosphatase 46 U/L (40-130); Anion Gap 12.3 (5-19); Aspartate Amino Transferase 27 U/L (0-40); Blood Urea Nitrogen 21 mg/dL (8-23); Calcium 9.4 mg/dL (8.5-10.5); Carbon Dioxide 29 mmol/L (22-29); Chloride 103 mmol/L (98-107); Creatine Phosphokinase 137 U/L (39-308); Creatinine Clr Calc Pharmacy 79.6446; Globulin 2.6 g/dL (1.3-4.6); Glucose 103 mg/dL (65-115); Lactic Sepsis W/Reflex 1.5 mmol/L (0.5-2.2); Osmolality Calculated 293 mOsm/kg (285-295); Potassium 4.3 mmol/L (3.5-5.1); Sodium 140 mmol/L (136-145); Total Bilirubin 0.5 mg/dL (0.15-1.2); Total Protein 6.9 g/dL (6.6-8.7)
[2023-01-07 01:54] LABS: Add Urine Microscopic? YES; Bilirubin Urine Neg (Negative); Blood Urine 3+ (Negative); Glucose Urine UA Norm (Normal); Ketones Urine 1+ (Negative); Leukocyte Esterase Urine Negative (Negative); Nitrate Urine Negative (Negative); Protein Urine Neg (Negative); Specific Gravity, Urine 1.005 (1.005-1.030); Squamous Epithelial Cell Urine RARE /hpf (0-5); Urine Appearance Clear (CLEAR); Urine Color Yellow (Yellow); Urobilinogen Urine Neg (Negative); pH Urine 7 (5-7)
[2023-01-07 01:55] LABS: Add Urine Culture? No
--- NOTE | 2023-01-07 02:39 | W.ED.EXTPRO ---
HPI - Extremity Problem General: Chief complaint: Extremity Injury, Lower Stated complaint: FALL Time Seen by Provider: 01/06/23 23:53 History of Present Illness: 82-year-old male with a history of Parkinson's disease. He presents with inability to walk after a fall on Saturday. His notes that he fell near a door frame on Saturday onto his left side. He seemed to be okay, and was able to walk Saturday. Saturday he has not been able to walk well. He nearly fell a couple of times earlier in the day, and then fell onto his couch tonight. He does not complain of pain. He does complain of instability. He has no other deficits such as upper extremity weakness, new speech or vision problems, etc. Associated symptoms: Deny chest pain or fever(s) Review of Systems Const: Denies: fever(s) ENMT: Denies: throat pain Card: Denies: chest pain or palpitations Resp: Denies: dyspnea, productive cough or non-productive cough GI: Denies: abdominal pain, nausea, vomiting or diarrhea : Reports: urinary frequency Musc: Denies: back pain Neuro: Reports: numbness in extremities and weakness in extremities; Denies: headache(s) PFSH ED PFSH: Medical History Abnormal PSA BPH with urinary obstruction Hypotension (arterial) Incomplete bladder emptying Parkinsons Syncopal episodes Surgical History History of inguinal hernia repair, bilateral History of knee replacement Family History Father Motor vehicle accident Mother , at age 91 Dementia Parkinson disease Grandfather Cancer Denies family history of Diabetes CAD (coronary artery disease) Clotting disorder Chronic kidney disease (CKD) Suicide Anesthesia complication Bleeding disorder Lung disease Stroke Social History Smoking and tobacco/nicotine status: never used tobacco/nicotine Alcohol intake: current Alcohol intake frequency: holidays/special occasions only Substance/Drug Use: never Adopted: No Caregiver/support person: No Lives independently: No Household members: spouse Marital status: Current occupational status: retired Current gender identity: Male Physical Exam Const: GENERAL APPEARANCE: cooperative and frail appearing HENMT: COMMON NORMALS: normocephalic, atraumatic and Normal external nose present HEAD & SCALP: normocephalic and atraumatic FACE & SINUS: normal facial exam and face symmetric NOSE: Normal external nose present and Normal nares present Eye: COMMON NORMALS: Equal, round and reactive pupils present and EOMs intact bilaterally PUPIL: Yes Equal, round and reactive pupils present Neck/C-Spine: GENERAL: Yes trachea midline Chest: CHEST: Yes Symmetrical chest wall rise Resp: EFFORT & INSPECTION: Yes symmetric chest movement Cardio: COMMON NORMALS: regular rate and regular rhythm RATE: regular rate RHYTHM: regular rhythm GI: COMMON NORMALS: Normal to inspection, nondistended, normoactive bowel sounds present and Soft to palpation PALPATION: Yes Soft to palpation : COMMON NORMALS: Yes no CVA tenderness BLADDER/KIDNEY EXAM: Yes no CVA tenderness Back/Pelvis: COMMON NORMALS: no CVA tenderness and no thoracic nor lumbar tenderness PELVIS: Yes no pain with anterior-posterior compression Extremity: COMMON NORMALS: full ROM NARRATIVE EXTREMITY EXAM: No deformity. No reproducible tenderness. Minimal knee joint effusion on the left. Neuro: COORDINATION/BALANCE: sresyo-ke-gauu test normal GAIT: Yes Shuffling gait present MOTOR EXAM: Pronator motor function not present and Tremors during motor activity present COORDINATION: ulblzy-[id number] test normal Psych: COMMON NORMALS: cooperative Course Vital Signs: Vital signs: Vital Signs Temperature 98.0 F 01/06/23 23:51 Pulse Rate 83 01/07/23 00:06 Respiratory Rate 16 01/06/23 23:51 Blood Pressure 202/88 01/07/23 00:06 Pulse Oximetry 99 01/07/23 00:06 Oxygen Delivery Me thod Room Air 01/06/23 23:51 MDM - Extremity (Nontraumatic) Medical Decision Making 82-year-old patient with Parkinson's disease. Although the patient does not have any deficits on strength training, he cannot walk at this point. He is a two-person assist for ambulation. Chest x-ray is negative. Thigh and tib-fib films are negative. Lumbar spine CT is negative. Head CT is negative. The patient's neurological exam is nonfocal. His laboratory is essentially normal, save mild hematuria. Of note, on CT scan the patient appears to have nodular bladder wall thickening which could be polypoid masses. He is hypertensive here. He has some degree of postural hypotension, likely related to his Parkinson's disease. Lab Data 01/07/23 00:01 01/07/23 00:01 Radiology Impressions Chest X-Ray 01/07/23 00:21 IMPRESSION: Negative for acute chest pathology. Femur X-Ray 01/07/23 00:21 IMPRESSION: No acute left femur pathology. Head CT 01/07/23 00:21 IMPRESSION: No acute intracranial abnormality. Lumbar Spine CT 01/07/23 00: IMPRESSION: Negative for acute lumbar spine pathology. COMMENTS: Consistent with the [employer]'s Incidental Findings Committee white paper (J Am Jomar Radiol 2018): Any incidental renal lesion less than 1 cm or classified as too small to characterize, or any incidental cystic renal lesion characterized as simple-appearing, is likely benign. No follow-up imaging is recommended for these lesions per consensus recommendations based on imaging criteria. Pelvis CT 01/07/23 00:21 IMPRESSION: 1. Negative for pelvic fracture. 2. Unusual multiple small areas of bladder wall nodular thickening. Cannot exclude the possibility of multiple intraluminal polypoid bladder masses. Correlate for hematuria. 3. Prompt outpatient urology consultation is recommended. 4. Prostatomegaly. Tibia/Fibula X-Ray 01/07/23 00:21 IMPRESSION: Negative for fracture. Laboratory Results WBC 5.89 10^3/uL (3.29-11.43) 01/07/23 00:01 RBC 5.01 10^6/uL (3.85-5.65) 01/07/23 00:01 Hgb 14.80 g/dL (11.27-16.99) 01/07/23 00:01 Hct 45.0 % (37-53) 01/07/23 00:01 MCV 89.8 fl (82-101) 01/07/23 00:01 MCH 29.5 pg (27-33) 01/07/23 00:01 MCHC 32.9 g/dL (30-55) 01/07/23 00:01 RDW 13.2 % (12.1-15.1) 01/07/23 00:01 Plt Count 175 10^3/cmm (157-399) 01/07/23 00:01 MPV 11.6 fL (7.4-10.4) H 01/07/23 00:01 Neut % (Auto) 56.7 % 01/07/23 00:01 Lymph % (Auto) 28.7 % 01/07/23 00:01 [place] % (Auto) 10.0 % 01/07/23 00:01 Eos % (Auto) 3.9 % 01/07/23 00:01 Baso % (Auto) 0.5 % 01/07/23 00:01 Neut # (Auto) 3.34 10^3/uL (1.8-7.7) 01/07/23 00:01 Lymph # (Auto) 1.7 10^3/uL (0.8-4.8) 01/07/23 00:01 [place] # (Auto) 0.6 10^3/uL (0.2-0.9) 01/07/23 00:01 Eos # (Auto) 0.2 10^3/uL (0.0-0.8) 01/07/23 00:01 Baso # (Auto) 0.0 10^3/uL (0.0-0.1) 01/07/23 00:01 Nucleated RBC % (auto) 0 % 01/07/23 00:01 Nucleated RBCs # 0.0 /100WBC 01/07/23 00:01 PT 12.00 SECONDS (12.1-14.9) L 01/07/23 00:01 INR 0.86 (0.8-1.2) 01/07/23 00:01 APTT 29.1 SECONDS (23.9-36.7) 01/07/23 00:01 Sodium 140 mmol/L (136-145) 01/07/23 00:01 Potassium 4.3 mmol/L (3.5-5.1) 01/07/23 00:01 Chloride 103 mmol/L (98-107) 01/07/23 00:01 Carbon Dioxide 29 mmol/L (22-29) 01/07/23 00:01 Anion Gap 12.3 (5-19) 01/07/23 00:01 BUN 21 mg/dL (8-23) 01/07/23 00:01 Creatinine 0.8 mg/dL (0.7-1.2) 01/07/23 00:01 GFR Calculation Not Reportable 01/07/23 00:01 Glucose 103 mg/dL (65-115) 01/07/23 00:01 Calculated Osmolality 293 mOsm/kg (285-295) 01/07/23 00:01 Lactic Acid 1.5 mmol/L (0.5-2.2) 01/07/23 00:01 Calcium 9.4 mg/dL (8.5-10.5) 01/07/23 00:01 Total Bilirubin 0.5 mg/dL (0.15-1.2) 01/07/23 00:01 AST 27 U/L (0-40) 01/07/23 00:01 ALT < 5 U/L (0-41) 01/07/23 00:01 Alkaline Phosphatase 46 U/L (40-130) 01/07/23 00:01 Creatine Kinase 137 U/L (39-308) 01/07/23 00:01 Total Protein 6.9 g/dL (6.6-8.7) 01/07/23 00:01 Albumin 4.3 g/dL (3.5-5.2) 01/07/23 00:01 Globulin 2.6 g/dL (1.3-4.6) 01/07/23 00:01 Urine Color Yellow (Yellow) 01/07/23 01:26 Urine Appearance Clear (CLEAR) 01/07/23 01:26 Urine pH 7 (5-7) 01/07/23 01:26 Ur Specific [place] 1.005 (1.005-1.030) 01/07/23 01:26 Urine Protein Neg (Negative) 01/07/23 01:26 Urine Glucose (UA) Norm (Normal) 01/07/23 01:26 Urine Ketones 1+ (Negative) H 01/07/23 01:26 Urine Blood 3+ (Negative) H 01/07/23 01:26 Urine Nitrate Negative (Negative) 01/07/23 01:26 Urine Bilirubin Neg (Negative) 01/07/23 01:26 Urine Urobilinogen Neg mg/dL (Negative) 01/07/23 01:26 Ur Leukocyte Esterase Negative (Negative) 01/07/23 01:26 Urine RBC 5-10 /hpf (0-2) H 01/07/23 01:26 Urine WBC None /hpf (0-5) 01/07/23 01:26 Ur Squamous Epith Cells Rare /hpf (0-5) 01/07/23 01:26 Amorphous Sediment Not Reportable 01/07/23 01:26 Urine Bacteria None /hpf (NONE) 01/07/23 01:26 All radiology interpretation(s) finalized by discharge Discharge Plan Discharge Patient Disposition: Placed in Observation Clinical Impression: Weakness generalized Coding Level of Care Code ED Quill Reamer for Rajendra Stoll
--- NOTE | 2023-01-07 03:17 | ECG_ITS ---
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 Measurements Intervals [place] Rate: 80 P: 60 ID: [id number] QRS: -59 QRSD: 134 T: 71 QT: 395 QTc: 457 Interpretive Statements SINUS RHYTHM WITH FIRST DEGREE AV BLOCK POSSIBLE LEFT ATRIAL ENLARGEMENT [-0.1mV P-WAVE IN V1/V2] LEFT AXIS DEVIATION [QRS AXIS < -30] INTRAVENTRICULAR CONDUCTION DELAY [130+ ms QRS DURATION] POSSIBLE LEFT VENTRICULAR HYPERTROPHY [VOLTAGE CRITERIA PLUS LAE OR QRS WIDENING] POSSIBLE SEPTAL MYOCARDIAL INFARCTION , PROBABLY OLD [30 ms Q WAVE IN V1/V2] Compared to ECG 09/23/2017 13:11:43 First degree AV block now present Left-axis deviation now present Intraventricular conduction delay now present Left anterior fascicular block no longer present Myocardial infarct finding still present Electronically Signed On 01-07-2023 9:54:37 BASEBALL SCOUT by Roman Vences M.D. [id number]
[2023-01-07] MEDS: enoxaparin 40 mg/0.4 mL Syringe SUBCUT (06:16)
--- NOTE | 2023-01-07 06:21 | P.HP_ITS ---
Providers/Chief Complaint Admitting Physician: Yadira Hendricks MD Primary Care Provider: Ismael Lau DO Chief Complaint: FALL History of Present Illness Gerard Najera is a 82 year old male with PMH orthostatic hypotension, Parkinson's Disease and syncope presented to the emergency room today with chief complaints of having sustained a fall at home. Patient states that he went into the bathroom and fell to the floor, then his went in after him, tried to get him up but he was overall very weak. She needed the assistance of her son to get him up and bring him back to bed. Since then patient has continued to feel extremely weak. He is able to move all extremities in bed however on attempting to get out of bed he feels extremely dizzy and uncoordinated and is unable to walk since then. Patient has a past history of Parkinson's with severe tremors. states that patient typically is independent with his ambulation. They walk up and down their street 3 times per week. Patient does not use any walker or canes at baseline, however since Saturday he has needed the assistance of a walker, even then he is unable to walk. Patient denies any tinnitus. Denies any recent fever or chills. He does have a home health aide who has been sick over the past week with what appears to be acute viral illness. There is no complaints of coryza, cough, chest pain, palpitations prior to this episode. Review of Systems General: Reports: 10 or more systems reviewed and unremarkable except in HPI and below Const: Denies: fever(s), chills or body aches Eyes: Denies: change in vision, blurry vision or photophobia ENMT: Reports: hoarseness; Denies: throat pain, enlarged tonsils, odynophagia or nasal congestion Card: Denies: chest pain, palpitations, irregular heart rhythm, edema, swelling of feet/ankles, lightheadedness, pre-syncope, dyspnea on exertion or orthopnea Resp: Denies: dyspnea, productive cough, non-productive cough, wheezing, stridor, pain on inspiration, change in phlegm color, hemoptysis or chest congestion GI: Denies: abdominal pain, nausea, vomiting, hematemesis, coffee ground emesis, dysphagia, heartburn, diarrhea, constipation, GI cramping, change in stool character, hematochezia or melena : Denies: flank pain, dysuria, urinary frequency, urinary urgency, urinary hesitancy or hematuria Musc: Denies: neck pain, back pain, extremity pain, joint swelling, joint warmth or deformity Neuro: Denies: headache(s), numbness in extremities, weakness in extremities, sensory changes, difficulty walking, frequent falls, dizziness, vertigo, behavioral changes, Slurred speech present or seizure-like activity Psych: Denies: anxiety, depression, suicidal ideation or homicidal ideation Endo: Denies: polyuria, polydipsia, tired all the time, cold intolerance or hot flashes [place]/Lymph: Denies: easy bruising or easy bleeding Medications/Allergies Home Medications Medication Instructions Recorded Confirmed Last Taken Type cholecalciferol (vitamin D3) 50 2,000 unit PO DAILY 04/27/19 01/07/23 01/06/23 20:00 History mcg (2,000 unit) tablet finasteride 5 mg tablet 5 mg PO DAILY 04/27/19 01/07/23 01/06/23 20:00 History carbidopa 25 mg-levodopa 100 mg 1 tab PO BID 03/07/20 01/07/23 01/06/23 20:00 History tablet minocycline 50 mg capsule 50 mg PO DAILY 03/07/20 01/07/23 01/06/23 20:00 History rasagiline 1 mg tablet 1 mg PO DAILY 08/03/20 01/07/23 01/06/23 20:00 History ibuprofen 200 mg tablet 200 mg PO Q6H PRN Pain 11/14/22 01/07/23 01/06/23 20:00 History carbidopa ER 50 mg-levodopa 200 mg 1 tab PO TID 01/07/23 01/07/23 01/06/23 20:00 History tablet,extended release Allergies Allergy/AdvReac Type Severity Reaction Status Date / Time ropinirole Allergy Unknown Unknown Verified 01/06/23 23:57 Sulfa (Sulfonamide Allergy Unknown Unknown Verified 01/06/23 23:57 Antibiotics) PFSH Acute PFSH: Medical History Abnormal PSA BPH with urinary obstruction Hypotension (arterial) Incomplete bladder emptying Parkinsons Syncopal episodes Surgical History History of inguinal hernia repair, bilateral History of knee replacement Family History Father Motor vehicle accident Mother , at age 91 Dementia Parkinson disease Grandfather Cancer Denies family history of Diabetes CAD (coronary artery disease) Clotting disorder Chronic kidney disease (CKD) Suicide Anesthesia complication Bleeding disorder Lung disease Stroke Social History Smoking and tobacco/nicotine status: never used tobacco/nicotine Alcohol intake: current Alcohol intake frequency: holidays/special occasions only Substance/Drug Use: never Adopted: No Caregiver/support person: No Lives independently: No Household members: spouse Marital status: Current occupational status: retired Current gender identity: Male Vitals/I&O/Wt Last Vital Signs Temp 97.8 F 01/07/23 04:53 Pulse 83 01/07/23 04:53 Resp 17 01/07/23 04:53 BP 170/92 01/07/23 04:53 Pulse Ox 99 01/07/23 04:53 O2 Del Method Room Air 01/07/23 04:53 01/06/23 01/06/23 01/07/23 14:59 22:59 06:59 Intake Total 480 / 480 Balance 480 / 480 Weight last 48 hrs Weight 81.647 kg Physical Exam Narrative: General: No acute distress, AO x3 HEENT: PERRLA, pupils bilaterally equal and reactive, pallors not present Chest: Normal vesicular breath sounds, no added sounds, equal good air entry bilaterally CVS: S1-S2 regular, no murmurs, no tachycardia, no gallops, no rubs Abdomen: Soft, nontender, no organomegaly, bowel sounds present Neuro: No focal deficits, moves all extremities appropriately when laying in bed, However attempts to sit up in bed and to stand up on needing a two-person assist currently. Data 01/07/23 00:01 01/07/23 00:01 Other data: Radiology Impressions Chest X-Ray 01/07/23 00:21 IMPRESSION: Negative for acute chest pathology. Femur X-Ray 01/07/23 00:21 IMPRESSION: No acute left femur pathology. Head CT 01/07/23 00:21 IMPRESSION: No acute intracranial abnormality. Lumbar Spine CT 01/07/23 00:21 IMPRESSION: Negative for acute lumbar spine pathology. COMMENTS: Consistent with the [employer]'s Incidental Findings Committee white paper (J Am Jomar Radiol 2018): Any incidental renal lesion less than 1 cm or classified as too small to characterize, or any incidental cystic renal lesion characterized as simple-appearing, is likely benign. No follow-up imaging is recommended for these lesions per consensus recommendations based on imaging criteria. Pelvis CT 01/07/23 00:21 IMPRESSION: 1. Negative for pelvic fracture. 2. Unusual multiple small areas of bladder wall nodular thickening. Cannot exclude the possibility of multiple intraluminal polypoid bladder masses. Correlate for hematuria. 3. Prompt outpatient urology consultation is recommended. 4. Prostatomegaly. Tibia/Fibula X-Ray 01/07/23 00:21 IMPRESSION: Negative for fracture. Laboratory Results WBC 5.89 10^3/uL (3.29-11.43) 01/07/23 00:01 RBC 5.01 10^6/uL (3.85-5.65) 01/07/23 00:01 Hgb 14.80 g/dL (11.27-16.99) 01/07/23 00:01 Hct 45.0 % (37-53) 01/07/23 00:01 MCV 89.8 fl (82-101) 01/07/23 00:01 MCH 29.5 pg (27-33) 01/07/23 00:01 MCHC 32.9 g/dL (30-55) 01/07/23 00:01 RDW 13.2 % (12.1-15.1) 01/07/23 00:01 Plt Count 175 10^3/cmm (157-399) 01/07/23 00:01 MPV 11.6 fL (7.4-10.4) H 01/07/23 00:01 Neut % (Auto) 56.7 % 01/07/23 00:01 Lymph % (Auto) 28.7 % 01/07/23 00:01 [place] % (Auto) 10.0 % 01/07/23 00:01 Eos % (Auto) 3.9 % 01/07/23 00:01 Baso % (Auto) 0.5 % 01/07/23 00:01 Neut # (Auto) 3.34 10^3/uL (1.8-7.7) 01/07/23 00:01 Lymph # (Auto) 1.7 10^3/uL (0.8-4.8) 01/07/23 00:01 [place] # (Auto) 0.6 10^3/uL (0.2-0.9) 01/07/23 00:01 Eos # (Auto) 0.2 10^3/uL (0.0-0.8) 01/07/23 00:01 Baso # (Auto) 0.0 10^3/uL (0.0-0.1) 01/07/23 00:01 Nucleated RBC % (auto) 0 % 01/07/23 00:01 Nucleated RBCs # 0.0 /100WBC 01/07/23 00: PT 12.00 SECONDS (12.1-14.9) L 01/07/23 00:01 INR 0.86 (0.8-1.2) 01/07/23 00:01 APTT 29.1 SECONDS (23.9-36.7) 01/07/23 00:01 Sodium 140 mmol/L (136-145) 01/07/23 00:01 Potassium 4.3 mmol/L (3.5-5.1) 01/07/23 00:01 Chloride 103 mmol/L (98-107) 01/07/23 00:01 Carbon Dioxide 29 mmol/L (22-29) 01/07/23 00:01 Anion Gap 12.3 (5-19) 01/07/23 00:01 BUN 21 mg/dL (8-23) 01/07/23 00:01 Creatinine 0.8 mg/dL (0.7-1.2) 01/07/23 00:01 GFR Calculation Not Reportable 01/07/23 00: Glucose 103 mg/dL (65-115) 01/07/23 00:01 Calculated Osmolality 293 mOsm/kg (285-295) 01/07/23 00:01 Lactic Acid 1.5 mmol/L (0.5-2.2) 01/07/23 00:01 Calcium 9.4 mg/dL (8.5-10.5) 01/07/23 00:01 Total Bilirubin 0.5 mg/dL (0.15-1.2) 01/07/23 00:01 AST 27 U/L (0-40) 01/07/23 00:01 ALT < 5 U/L (0-41) 01/07/23 00:01 Alkaline Phosphatase 46 U/L (40-130) 01/07/23 00:01 Creatine Kinase 137 U/L (39-308) 01/07/23 00:01 Total Protein 6.9 g/dL (6.6-8.7) 01/07/23 00:01 Albumin 4.3 g/dL (3.5-5.2) 01/07/23 00:01 Globulin 2.6 g/dL (1.3-4.6) 01/07/23 00:01 Urine Color Yellow (Yellow) 01/07/23 01:26 Urine Appearance Clear (CLEAR) 01/07/23 01:26 Urine pH 7 (5-7) 01/07/23 01:26 Ur Specific [place] 1.005 (1.005-1.030) 01/07/23 01:26 Urine Protein Neg (Negative) 01/07/23 01:26 Urine Glucose (UA) Norm (Normal) 01/07/23 01:26 Urine Ketones 1+ (Negative) H 01/07/23 01:26 Urine Blood 3+ (Negative) H 01/07/23 01:26 Urine Nitrate Negative (Negative) 01/07/23 01:26 Urine Bilirubin Neg (Negative) 01/07/23 01:26 Urine Urobilinogen Neg mg/dL (Negative) 01/07/23 01:26 Ur Leukocyte Esterase Negative (Negative) 01/07/23 01:26 Urine RBC 5-10 /hpf (0-2) H 01/07/23 01:26 Urine WBC None /hpf (0-5) 01/07/23 01:26 Ur Squamous Epith Cells Rare /hpf (0-5) 01/07/23 01:26 Amorphous Sediment Not Reportable 01/07/23 01:26 Urine Bacteria None /hpf (NONE) 01/07/23 01:26 A&P Assessment and plan (1) Weakness generalized: (2) Dizziness: (3) Ataxia: (4) Parkinsons: Plan 82-year-old male presenting with a syncopal episode at home on Saturday, thereafter followed by increased generalized weakness, ataxia, dizziness, now needing assistance to walk whereas per reports he was previously able to ambulate independently. He does have significant tremors related to Parkinson's, however per his he is usually able to ambulate without any assistive devices. See the head without any acute intracranial events. X-ray of lower extremities and lumbar CT without any acute fractures. Patient is able to currently able to move all extremities against gravity and against resistance while laying in bed, however feels unsteady upon getting up. Check orthostatics, patient has a past history of orthostatic hypotension. Normal saline at 75 cc an hour MRI brain to evaluate for potentially posterior circulation stroke as a cause of persistent dizziness and ataxia. Alternate possibility is that of acute labyrinthitis related to viral illness, check respiratory viral panel, he does have a history of sick contacts in the past week. Unable to assess if patient has had any new hearing loss as he is significantly hard of hearing at baseline. Most of the history is given by his due to his inability to hear conversation properly. CPK negative for rhabdomyolysis check TSH and random cortisol PT OT assessment Attestations Medical Necessity Statement*: > less than 2 midnight stay anticipated at this time Coding Level of Care Code Acute Code for Chg Fwd Moderate MDM includes number and complexity of problems actively addressed during encounter, amount and/or complexity of data reviewed/ordered and described risk of complication, morbidity or mortality of management as documented Diagnoses Weakness generalized R53.1 Dizziness R42 Ataxia R27.0 Parkinsons G20
[2023-01-07] MEDS: sodium chloride 0.9% 1,000 ML 75 ML IV ×2 (06:34→20:22)
--- NOTE | 2023-01-07 06:41 | USCV_ITS ---
Gerard Najera Age: 82 Gender: M : 1940 Exam Date: 01/07/2023 14:36 Ordering Phys: Yadira Hendricks MD Technologist: Christopher Parekh [place] [facility] [place]: cva BP: 134 / 74 HR: 86 Rhythm: Sinus Technical Quality: Adequate MEASUREMENTS (Male / Female) Normal Values 2D ECHO LV Diastolic Diameter PLAX 4.3 cm 4.2 - 5.9 / 3.9 - 5.3 cm LV Systolic Diameter PLAX 2.4 cm IVS Diastolic Thickness 1.0 cm 0.6 - 1.0 / 0.6 - 0.9 cm IVS Systolic Thickness 1.2 cm LVPW Diastolic Thickness 1.0 cm 0.6 - 1.0 / 0.6 - 0.9 cm LVPW Systolic Thickness 1.2 cm LVOT Diameter 2.1 cm LV Ejection Fraction 2D Teich 76.0 % LA Diameter 3.8 cm M-MODE Aortic Annulus Diameter 4.1 cm LA Ao Ratio MM 1.0 MV E Point Septal Separation 0.9 cm DOPPLER AV Peak Velocity 130.0 cm/s LVOT Peak Velocity 108.0 cm/s AV Area Cont Eq vti 3.9 cm squared AV Area Cont Eq pk 2.8 cm squared MV E' Velocity 7.0 cm/s TR Peak Velocity 132.7 cm/s TR Peak Gradient 7.0 mmHg TV Peak E Velocity 74.0 cm/s Right Atrial Pressure 3.0 mmHg Pulmonary Artery Systolic Pressu 10.0 mmHg FINDINGS Left Ventricle Left ventricle is normal in size. LV systolic function is normal with EF of 55-60%. No regional wall motion abnormalities are seen. Grade 1 diastolic dysfunction Right Ventricle Normal in size and function Right Atrium Normal in size Left Atrium Normal in size Mitral Valve Mild mitral annular calcification. Aortic Valve Aortic valve is thickened. No significant stenosis or regurgitation. Tricuspid Valve Mild tricuspid regurgitation. Insufficient TR jet to calculate RVSP. Pulmonic Valve Not well-visualized Pericardium Normal Aorta Normal in size IVC Not well visualized CONCLUSIONS LV systolic function is normal with EF of 55-60%. Grade 1 diastolic dysfunction. Mild tricuspid regurgitation Compared to prior echocardiogram from 2018 no significant changes are seen Roman Vences MD (Electronically Signed) Final Date: 07 January 2023 18:03 S
[2023-01-07 07:11] LABS: Thyroid Stimulating Hormone 1.89 uIU/mL (0.27-4.20)
[2023-01-07] MEDS: pantoprazole DR 40 mg Tablet PO (08:34)
[2023-01-07] MEDS: finasteride 5 mg Tablet PO (08:34)
[2023-01-07] MEDS: carbidopa-levodopa 25-100mg Tablet 1 EACH PO ×2 (08:34→18:02)
[2023-01-07] MEDS: carbidopa-levodopa ER 50-200mg Tablet 1 EACH PO ×3 (08:34→20:22)
[2023-01-07 08:35] LABS: Cortisol Random 16.31 ug/dL (2.47-19.5)
--- NOTE | 2023-01-07 10:59 | USCV_ITS ---
Gerard Najera Age: 82 Gender: M : 1940 Exam Date: 01/07/2023 14:46 Ordering Phys: Vance Woods MD Technologist: Christopher Parekh [place] [facility] [place]: cva Risk Factors: Previous Vascular Surgery: Right Brachial BP: / Left Brachial BP: / Right Left Velocity (cm/s) Spectral Plaque Velocity (cm/s) Spectral Plaque Syst/Diast Broadening Syst/Diast Broadening 42.20/ 8.90 Prox CCA 87.65 / 13.75 71.00/ 14.50 Mid CCA 70.05 / 16.50 73.60/ 14.50 Distal CCA 67.80 / 18.15 48.90/ 12.40 Prox ICA 47.00 / 13.60 76.90/ 24.90 Mid ICA 38.80 / 8.90 63.70/ 17.90 Distal ICA 66.80 / 19.80 124.90 ECA 110.30 1.04 ICA/CCA 0.76 Antegrade Vertebral Antegrade 40.40/ 7.80 cm/s 25.60/ 6.10 cm/s Tri Subclavian Tri 101.6 101.6 0 0 CONCLUSIONS Right ICA stenosis <50%. Moderate calcified atheromatous plaque right carotid bulb/ICA. Left ICA stenosis <50%. Moderate calcified atheromatous plaque left carotid bulb/ICA. Intimal thickening in the common carotid arteries and internal carotid arteries bilaterally. Normal antegrade Doppler flow noted in the right vertebral artery. Normal antegrade Doppler flow noted in the left vertebral artery. Miguel Amado MD (Electronically Signed) Final Date: 08 January 2023 10:33 S
--- NOTE | 2023-01-07 11:01 | USCV_ITS ---
ReinaldoGerard slater Age: 82 Gender: M : 1940 Exam Date: 01/07/2023 15:04 Ordering Phys: Vance Woods MD Technologist: Christopher Parekh Exam Location: [facility] – [place] Indication: leg pain Risk Factors: Previous Vascular Surgery: RIGHT LEFT BP: 130.0 / 70.00 BP: 130.0/ 70.00 0 0 Waveform Velocity (cm/s) Velocity (cm/s) Waveform Biphasic 77.7 Iliac Prox 143.9 Biphasic Biphasic 83.9 Iliac Mid 129.5 Biphasic Biphasic 87.8 Iliac Distal 127.7 Biphasic Biphasic 80.8 UNIFORM DESIGNER 145.7 Biphasic Biphasic 82.3 SFA Prox 127.7 Biphasic Biphasic 69.9 SFA Mid 147.5 Biphasic Biphasic SFA Dist Biphasic 83.9 140.3 Biphasic 42.1 POP 55.2 Biphasic Biphasic 54.0 BALANCE WHEEL SCREW HOLE TAPPER 69.1 Biphasic Biphasic 74.9 DPA 63.7 Biphasic 1.0 RIANNA 1.0 FINDINGS Resting RIANNA 1.0 bilaterally. Intimal thickening and minimal plaques in the femoral and popliteal arteries bilaterally Normal Doppler flow velocities with a biphasic Doppler waveforms CONCLUSIONS 1. Normal resting ABIs bilaterally suggesting no significant arterial obstruction. 2. Intimal thickening and minimal plaques in the femoral and popliteal arteries bilaterally 3. No significant arterial obstruction, based on the above findings Dr Sahara Schmitz MD [facility] (Electronically Signed) Final Date: 08 January 2023 20:23 S
--- NOTE | 2023-01-07 11:04 | MR_ITS ---
WS: [id number] MRI HEAD WITH CONTRAST TECHNIQUE: Sagittal T1, T2 axial, T2 axial FLAIR, axial susceptibility weighted imaging, axial diffus ion weighted images, and coronal T2 images were obtained. Pre and post-T1 axial and post T1 coronal i mages. ADC and FSPGR images. CLINICAL INFORMATION: syncope COMPARISON: CT 01/07/23 FINDINGS: Small focus of restricted diffusion in the RIGHT lateral thalamus along the posterior limb RIGHT inte rnal capsule measuring 8.3 mm compatible with acute ischemia. Mild associated edema. No mass effect o r midline shift. No other foci of restricted diffusion. Moderate supratentorial small vessel changes. Mild small vessel changes in the doug. Moderate parench ymal volume loss. Normal posterior fossa. Normal vascular flow voids at the skull base. No extra-axia l fluid collections. No evidence of mass or mass effect. Paranasal sinuses are well aerated. Mucosal thickening in the ethmoid air cells and frontal ethmoidal recesses. Mastoid air cells are well aerate d. Normal optic chiasm and pituitary infundibulum. Moderate symmetric atrophy temporal lobes and hippoca mpal formations. No hemosiderin on the susceptibly weighted images. No abnormal gadolinium enhancement. Normal dural v enous sinuses. IMPRESSION: 1. 8 mm focus of acute ischemia along the RIGHT lateral thalamus and posterior limb of RIGHT interna l capsule. 2. No other foci of acute ischemia. 3. Moderate small vessel changes moderate parenchymal volume loss. Small vessel changes in the doug. 4. Moderate symmetric atrophy temporal lobes hippocampal formations. 5. No abnormal gadolinium enhancement. Notified Dr. Thorne at 01/07/2023 1:57 PM.
--- NOTE | 2023-01-07 11:55 | P.CONIM_ITS ---
Providers/Reason For Consult Consulting Physician/Specialty*: Vance Woods MD neurology and epilepsy Reason for Consult*: 82-year-old male with history of Parkinson disease with reports of paroxysmal episodes described as numbness and weakness in the left leg with falling without alteration in consciousness or back pain and reports of some mental confusion following the falling episode that occurred on 01/06/2023 Attending Physician: Александр Thorne MD Primary Care Provider: Ismael Lau DO History of Present Illness History of Present Illness Gerard Najera is a 82 year old male with a history of hypotension with syncopal episodes during ambulation addressed by cardiology in the past and diagnosed with syncope, Parkinson disease diagnosed approximately 3 to 4 years after the patient began experiencing syncopal episodes, benign prostate hypertrophy with urinary obstruction, and osteoarthritis of the left hip. According to the patient's and daughter who was present at the patient's bedside, the patient was in his usual state of health and doing well prior to admission. The patient stated that they routinely take walks and the zhen ent participates at the recreational center. On 01/04/2023 the patient experienced a recurrent syncopal episode preceded by dizziness with while standing and leaning against the bathroom door. According to the patient's the patient did not actually lose consciousness but suddenly dropped to the floor. The patient's stated that she assisted the patient up from the floor and assisted him to bed and he slept for several hours and then arose and was doing okay. On 01/05/2023 the patient was doing well and went to bed early. She stated the patient was also doing okay Saturday night on 01/05/2023. On Saturday morning on 01/06/2023 the patient got up to use the bathroom and was okay but later that day he again got up to walk with his walker and was displaying difficulty ambulating with magnetic gait in the left lower extremity. The patient stated that he has been experiencing paroxysmal episodes of numbness and weakness in the left leg when standing and he feels as though he is about to fall he will call out to the family and then lose tone in the left lower extremity. The patient denied any back pain. The family called 911 and the patient was brought to the hospital on 01/06/2023 around midnight and was admitted. Head CT scan performed on 01/07/2023 was reported to be negative for any acute findings. Lumbar CT scan was also obtained on 01/07/2023 and reported to be negative. Currently the patient is alert and oriented to person place and situation. He recognize his and daughter and was able to tell me their names. Patient is cooperative. Currently he denies any weakness or pain. The family informing the patient was diagnosed with Parkinson disease by a neurologist in [place]. The patient was on Sinemet 25/100 mg tablets 3 times a day but on 11/16/2022 Sinemet 50/200 mg tablets 3 times a day was started and Sinemet 25/100 mg tablets were decreased to 1 twice a day. Patient was continued on rasagiline 1 mg p.o. daily. Past medical history: Syncope, addressed by cardiology in the past Parkinson disease diagnosed by a neurologist in [facility] Hypotension Osteoarthritis of left hip Benign prostate hypertrophy with urinary obstruction Drug allergies: Ropinirole type of reaction unknown Sulfonamide antibiotics type reaction unknown Current medications: Sinemet 25/100 mg tablets 1 p.o. twice daily Sinemet 50/200 mg tablets 1 p.o. 3 times daily Rasagiline 1 mg p.o. daily Vistaril 10 mg p.o. nightly Minocycline 50 mg p.o. daily for rosacea Vitamin D3 2000 international units p.o. daily Finasteride 5 mg p.o. daily for bladder Magnesium 350 mg p.o. daily Ibuprofen 200 mg p.o. every 6 hours as needed pain Habits: None Family history: Remarkable for a mother with questionable Parkinson disease Review of Systems General: Reports: 10 or more systems reviewed and unremarkable except in HPI and below Medications/Allergies Home Medications Medication Instructions Recorded Confirmed Last Taken Type cholecalciferol (vitamin D3) 50 2,000 unit PO DAILY 04/27/19 01/07/23 01/06/23 20:00 History mcg (2,000 unit) tablet finasteride 5 mg tablet 5 mg PO DAILY 04/27/19 01/07/23 01/06/23 20:00 History carbidopa 25 mg-levodopa 100 mg 1 tab PO BID 03/07/20 01/07/23 01/06/23 20:00 History tablet minocycline 50 mg capsule 50 mg PO DAILY 03/07/20 01/07/23 01/06/23 20:00 History rasagiline 1 mg tablet 1 mg PO DAILY 08/03/20 01/07/23 01/06/23 20:00 History ibuprofen 200 mg tablet 200 mg PO Q6H PRN Pain 11/14/22 01/07/23 01/06/23 20:00 History carbidopa ER 50 mg-levodopa 200 mg 1 tab PO TID 01/07/23 01/07/23 01/06/23 20:00 History tablet,extended release Allergies Allergy/AdvReac Type Severity Reaction Status Date / Time ropinirole Allergy Unknown Unknown Verified 01/06/23 23:57 Sulfa (Sulfonamide Allergy Unknown Unknown Verified 01/06/23 23:57 Antibiotics) Current Medications Generic Name Dose Route Start Last Admin Trade Name Freq PRN Reason Stop Dose Admin Carbidopa/Levodopa 1 each 01/07/23 09:00 01/07/23 08:34 Carbidopa-Levodopa 25-100mg Tablet PO 1 each BID SOHEILA Administration Carbidopa/Levodopa 1 each 01/07/23 09:00 01/07/23 08:34 Carbidopa-Levodopa Er 50-200mg Tablet PO 1 each TID SOHEILA Administration Enoxaparin Sodium 40 mg 01/07/23 05:45 01/07/23 06:16 Enoxaparin 40 Mg/0.4 Ml Syringe SUBCUT 40 mg Q24H SOHEILA Administration Finasteride 5 mg 01/07/23 09:00 01/07/23 08:34 Finasteride 5 Mg Tablet PO 5 mg DAILY SOHEILA Administration Sodium Chloride 1,000 mls @ 75 mls/hr 01/07/23 06:30 01/07/23 06:34 Sodium Chloride 0.9% IV 75 mls/hr .[id number] SOHEILA Administration Non-Formulary Medication 50 mg 01/07/23 09:00 01/07/23 08:42 Minocycline PO Not Given DAILY SOHEILA Non-Formulary Medication 1 mg 01/07/23 09:00 01/07/23 08:42 Rasagiline PO Not Given DAILY SOHEILA Pantoprazole Sodium 40 mg 01/07/23 09:00 01/07/23 08:[address] 40 Mg Tablet PO 40 mg DAILY SOHEILA Administration PFSH Acute PFSH: Medical History Abnormal PSA BPH with urinary obstruction Hypotension (arterial) Incomplete bladder emptying Parkinsons Syncopal episodes Surgical History History of inguinal hernia repair, bilateral History of knee replacement Family History Father Motor vehicle accident Mother , at age 91 Dementia Parkinson disease Grandfather Cancer Denies family history of Diabetes CAD (coronary artery disease) Clotting disorder Chronic kidney disease (CKD) Suicide Anesthesia complication Bleeding disorder Lung disease Stroke Social History Smoking and tobacco/nicotine status: never used tobacco/nicotine Alcohol intake: current Alcohol intake frequency: holidays/special occasions only Substance/Drug Use: never Adopted: No Caregiver/support person: No Lives independently: No Household members: spouse Marital status: Current occupational status: retired Current gender identity: Male Vitals/I&O/Wt Last Vital Signs Temp 97.6 F 01/07/23 08:00 Pulse 84 01/07/23 08:00 Resp 18 01/07/23 08:00 BP 158/82 01/07/23 08:00 Pulse Ox 95 01/07/23 08:00 O2 Del Method Room Air 01/07/23 08:00 01/06/23 01/07/23 01/07/23 22:59 06:59 14:59 Intake Total 480 / 480 240 / 240 Output Total 200 / 200 Balance 480 / 480 40 / 40 Weight last 48 hrs Weight 180 lb Physical Exam Narrative: The patient is alert and oriented x3. Speech fluent. Head normocephalic. Neck supple. Cranial nerves II through XII intact. Pupils equal round and reactive to light and accommodation. Extraocular movements intact. Motor testing grossly nonfocal at 5/5. Patient did display questionable mild tremors in the upper extremities at rest. Deep tendon reflexes 1+ bilaterally. Plantar responses flexor bilaterally. There was no clonus. There was no obvious spasticity or cogwheel rigidity while patient's was lying in bed. No: Gait was not tested secondary to reports of falls. Sensory examination was intact to gross modalities. Throat clear. Lungs clear. Heart regular rhythm and rate. Extremities were negative for clubbing cyanosis or edema. Patient does have signs of right total knee replacement. According to the patient's , following the patient's fall on 01/06/2023 the patient landed on his left side and injured his left knee and it was swollen. But I did not observe any obvious swelling today. Data 01/07/23 00:01 01/07/23 00:01 A&P Assessment and plan (1) Parkinsons: Impression: 1. Parkinson disease diagnosed by a neurologist in [facility] 2. Paroxysmal episodes of ataxia and gait difficulty associated with falling preceded by left leg weakness and numbness without alteration in consciousness since 01/06/2023 3. Syncope and near syncope addressed by cardiology in the past 4. History of hypotension 5. Episode of confusion where patient did not recognize his family, resolved Plan: 1. Carotid duplex study to assess for carotid or vertebral artery stenosis 2. Head MRI with and without contrast to assess for space-occupying lesions and atrophy of the substantia nigra 3. 2D echocardiogram to assess for cardiac dysfunction 4. Recommend cardiac telemetry monitoring to assess for cardiac arrhythmia 5. Arterial Dopplers on the lower extremities to assess for left peripheral vascular disease 6. Continue Fall precautions 7. Labs for B12, folate, methylmalonic acid, vitamin D, magnesium and thyroid profile 8. Will adjust Parkinson medications as needed/tolerated 9. Will consider surface EEG recording for 41 minutes to assess for seizures if the above work-up is unrevealing 10. Will consider DaTscan to further assess patient to confirm or exclude Parkinson disease if needed (2) Syncopal episodes: Qualifiers: Syncope type: unspecified Qualified Code(s): R55 - Syncope and collapse (3) Ataxia: (4) Transient left leg weakness: (5) Left leg numbness: Consult Attestations Medical Necessity Statement: The patient was evaluated by neurology for history of Parkinson disease, recurrent falling episodes preceded by left leg numbness and weakness and episode of confusion on admission where the patient was reported not to recognize his family Coding Level of Care Code 77368 Diagnoses Parkinsons G20 Syncopal episodes R55 Syncope type: unspecified Ataxia R27.0 Transient left leg weakness R29.898 Left leg numbness R20.0
[2023-01-07 12:44] LABS: Magnesium 2.4 mg/dL (1.7-2.3)
[2023-01-07 13:01] LABS: 25 Hydroxy Vitamin D 47 ng/mL (30-100); Vitamin B12 827 pg/mL (232-1245)
[2023-01-07] MEDS: gadobenate dimeglumine 20 mL vial IV (13:21)
[2023-01-07 13:47] LABS: Folate Level > 20.0 ng/mL (4.5-32.2)
[2023-01-07 14:08] LABS: Adenovirus Not Detected (NOT DETECT); Chlamydia Pneumoniae Not Detected (NOT DETECT); Coronavirus 229E,HKU1,NL63,OC4 Not Detected (NOT DETECT); Human Metapneumovirus Not Detected (NOT DETECT); Human Rhinovirus/Enterovirus Not Detected (NOT DETECT); Influenza A Not Detected (NOT DETECT); Influenza A H1 Not Detected (NOT DETECT); Influenza A H1-2009 Not Detected (NOT DETECT); Influenza A H3 Not Detected (NOT DETECT); Influenza B Not Detected (NOT DETECT); Mycoplasma Pneumoniae Not Detected (NOT DETECT); Parainfluenza Virus Type 1 Not Detected (NOT DETECT); Parainfluenza Virus Type 2 Not Detected (NOT DETECT); Parainfluenza Virus Type 3 Not Detected (NOT DETECT); Parainfluenza Virus Type 4 Not Detected (NOT DETECT); Respiratory Syncytial Virus A Not Detected (NOT DETECT); Respiratory Syncytial Virus B Not Detected (NOT DETECT); SARS-COV-2 Not Detected (NOT DETECT)
[2023-01-07 14:33] LABS: Free T4 Free Thyroxine 0.97 ng/dL (0.82-1.77); T3 Free 2.7 PG/ML (2.0-4.4)
[2023-01-07] MEDS: aspirin 325 mg Tablet PO (15:53)
[2023-01-07] MEDS: atorvastatin 40 mg Tablet PO (20:22)
[2023-01-08] VITALS (11 sets, daily range): BP systolic 112–183; BP diastolic 61–89; PULSE 74–95; RESP 14–18; TEMP 36.4–36.9; O2SAT 94–98
[2023-01-08] MEDS: trazodone 50 mg Tablet 25 MG PO (00:01)
[2023-01-08] MEDS: enoxaparin 40 mg/0.4 mL Syringe SUBCUT (05:37)
[2023-01-08 06:46] LABS: Basophils % 0.5 %; Eosinophils # 0.1 10^3/uL (0.0-0.8); Eosinophils % 1.2 %; Hematocrit 43.9 % (37-53); Lymphocytes # 0.9 10^3/uL (0.8-4.8); Mean Corpuscular HGB Conc 32.3 g/dL (30-55); Mean Corpuscular Hemoglobin 29.5 pg (27-33); Mean Corpuscular Volume 91.1 fl (82-101); Mean Platelet Volume 11.6 fL (7.4-10.4); Monocytes # 0.7 10^3/uL (0.2-0.9); Monocytes % 8.3 %; Neutrophils # 6.54 10^3/uL (1.8-7.7); Neutrophils % 78.5 %; Nucleated Red Blood Cells % 0 %; Platelet Count 149 10^3/cmm (157-399); Red Blood Count 4.82 10^6/uL (3.85-5.65); Red Cell Distribution Width 13.1 % (12.1-15.1); White Blood Count 8.33 10^3/uL (3.29-11.43)
[2023-01-08 07:07] LABS: Alanine Aminotransferase < 5 U/L (0-41); Albumin Level 4.1 g/dL (3.5-5.2); Alkaline Phosphatase 43 U/L (40-130); Aspartate Amino Transferase 24 U/L (0-40); Blood Urea Nitrogen 15 mg/dL (8-23); Calcium 9.2 mg/dL (8.5-10.5); Carbon Dioxide 24 mmol/L (22-29); Chloride 106 mmol/L (98-107); Creatinine Clr Calc Pharmacy 79.6446; Globulin 1.8 g/dL (1.3-4.6); Glucose 117 mg/dL (65-115); Osmolality Calculated 292 mOsm/kg (285-295); Sodium 140 mmol/L (136-145); Total Bilirubin 0.8 mg/dL (0.15-1.2); Total Protein 5.9 g/dL (6.6-8.7)
[2023-01-08 07:09] LABS: Anion Gap 13.8 (5-19); Potassium 3.8 mmol/L (3.5-5.1)
--- NOTE | 2023-01-08 08:00 | PM.PN ---
Subjective Subjective: History of Present Illness Gerard Najera is a 82 year old male with a history of hypotension with syncopal episodes during ambulation addressed by cardiology in the past and diagnosed with syncope, Parkinson disease diagnosed approximately 3 to 4 years after the patient began experiencing syncopal episodes, benign prostate hypertrophy with urinary obstruction, and osteoarthritis of the left hip.? According to the patient's and daughter who was present at the patient's bedside, the patient was in his usual state of health and doing well prior to admission.? The patient stated that they routinely take walks and the patient participates at the recreational center.? On 01/04/2023 the patient experienced a recurrent syncopal episode preceded by dizziness with while standing and leaning against the bathroom door.? According to the patient's the patient did not actually lose consciousness but suddenly dropped to the floor.? The patient's stated that she assisted the patient up from the floor and assisted him to bed and he slept for several hours and then arose and was doing okay.? On 01/05/2023 the patient was doing well and went to bed early.? She stated the patient was also doing okay Saturday night on 01/05/2023.? On Saturday morning on 01/06/2023 the patient got up to use the bathroom and was okay but later that day he again got up to walk with his walker and was displaying difficulty ambulating with magnetic gait in the left lower extremity.? The patient stated that he has been experiencing paroxysmal episodes of numbness and weakness in the left leg when standing and he feels as though he is about to fall he will call out to the family and then lose tone in the left lower extremity.? The patient denied any back pain.? The family called 911 and the patient was brought to the hospital on 01/06/2023 around midnight and was admitted.? Head CT scan performed on 01/07/2023 was reported to be negative for any acute findings.? Lumbar CT scan was also obtained on 01/07/2023 and reported to be negative.? Currently the patient is alert and oriented to person place and situation.? He recognize his and daughter and was able to tell me their names.? Patient is cooperative.? Currently he denies any weakness or pain.? The family informing the patient was diagnosed with Parkinson disease by a neurologist in [place].? The patient was on Sinemet 25/100 mg tablets 3 times a day but on 11/16/2022 Sinemet 50/200 mg tablets 3 times a day was started and Sinemet 25/100 mg tablets were decreased to 1 twice a day.? Patient was continued on rasagiline 1 mg p.o. daily. Patient was scheduled for head MRI with and without contrast to assess for strokes and space-occupying lesions and to evaluate for atrophy of the substantia nigra in the midbrain. Carotid duplex study, 2D echocardiogram and cardiac telemetry monitoring ordered. Patient was continued on fall precautions. Head MRI was abnormal secondary to ?8 mm focus of acute ischemia along the RIGHT lateral thalamus and posterior limb of RIGHT internal capsule. No other foci of acute ischemia. Moderate small vessel changes moderate parenchymal volume loss. Small vessel changes in the doug.? Moderate symmetric atrophy temporal lobes hippocampal formations.? No abnormal gadolinium enhancement. 2D echocardiogram performed on 01/07/2023 revealed no significant abnormalities compared to previous study. Ejection fraction 55 to 60%. Carotid duplex study pending at the time of this dictation. According to the patient's who was at the bedside, patient was restless last night. She also stated that he has been experiencing blood in his Jon and has a history of blood in his urine in the past. Labs for B12, folate, magnesium, vitamin D and thyroid profile were unrevealing. Past medical history: Syncope, addressed by cardiology in the past Parkinson disease diagnosed by a neurologist in [facility] Hypotension Osteoarthritis of left hip Benign prostate hypertrophy with urinary obstruction Drug allergies: Ropinirole type of reaction unknown Sulfonamide antibiotics type reaction unknown Current medications: Sinemet 25/100 mg tablets 1 p.o. twice daily Sinemet 50/200 mg tablets 1 p.o. 3 times daily Rasagiline 1 mg p.o. daily Vistaril 10 mg p.o. nightly Minocycline 50 mg p.o. daily for rosacea Vitamin D3 2000 international units p.o. daily Finasteride 5 mg p.o. daily for bladder Magnesium 350 mg p.o. daily Ibuprofen 200 mg p.o. every 6 hours as needed pain Habits: None Family history: Remarkable for a mother with questionable Parkinson disease Review of Systems General:?? Reports: 10 or mor e systems reviewed and unremarkable except in HPI and below Vitals/I&O/Wt Last Vital Signs Temp 98.4 F 01/08/23 07:14 Pulse 86 01/08/23 07:14 Resp 16 01/08/23 07:14 BP 150/79 01/08/23 07:14 Pulse Ox 98 01/08/23 07:14 O2 Del Method Room Air 01/07/23 16:02 01/07/23 01/08/23 01/08/23 22:59 06:59 14:59 Intake Total 1600 / 0 Output Total 1450 / 1650 Balance 1600 / 1880 -1450 / 430 Weight last 48 hrs Weight 180 lb Physical Exam Narrative: The patient is alert and oriented x3.? Speech fluent.? Head normocephalic.? Neck supple.? Cranial nerves II through XII intact.? Pupils equal round and reactive to light and accommodation.? Extraocular movements intact.? Motor testing grossly nonfocal at 5/5.? Patient did display tremors in the upper extremities when attempting to use his hands.? Deep tendon reflexes 1+ bilaterally.? Plantar responses flexor bilaterally.? There was no clonus.? There was no obvious spasticity or cogwheel rigidity while patient's was lying in bed.? No: Gait was not tested secondary to reports of falls.? Sensory examination was intact to gross modalities.? Throat clear.? Lungs clear.? Heart regular rhythm and rate.? Extremities were negative for clubbing cyanosis or edema.? Patient does have signs of right total knee replacement.? According to the patient's , following the patient's fall on 01/06/2023 the patient landed on his left side and injured his left knee and it was swollen.? But I did not observe any obvious swelling today. Urinary Catheter Management: Jon: Cath Placed During This Visit: yes Reason for Continuing Indwelling Catheter: Acute Urinary Retention or Obstruction Urinary Catheter Date of Insertion: 01/07/23 Data 01/08/23 06:15 01/08/23 06:15 A&P Assessment and plan (1) Parkinsons: Impression: 1. 8 mm focus of acute ischemia along the RIGHT lateral thalamus and posterior limb of RIGHT internal capsule. 1a. Parkinson disease diagnosed by a neurologist in [facility] 2.? Paroxysmal episodes of ataxia and gait difficulty associated with falling preceded by left leg weakness and numbness without alteration in consciousness since 01/06/2023 3.? Syncope and near syncope addressed by cardiology in the past 4.? History of hypotension 5.? Episode of confusion where patient did not recognize his family, resolved Plan: 1.? Carotid duplex study to assess for carotid or vertebral artery stenosis 2.? Continue cardiac telemetry monitoring to assess for cardiac arrhythmia 3.? Arterial Dopplers on the lower extremities to assess for left peripheral vascular disease 4.? Continue Fall precautions 5.?Will adjust Parkinson medications as needed/tolerated 6. Ibuprofen was discontinued 7. Continue aspirin and lipid-lowering agent per NIH stroke protocol 8. Continue occupational therapy and physical therapy (2) Syncopal episodes: Qualifiers: Syncope type: unspecified Qualified Code(s): R55 - Syncope and collapse (3) Ataxia: (4) Left leg numbness: (5) Transient left leg weakness: Attestations Medical Necessity Statement*: Patient seen by neurology secondary to stroke, Parkinson disease gait ataxia and falls Coding Level of Care Code 61051 Diagnoses Parkinsons G20 Syncopal episodes R55 Syncope type: unspecified Ataxia R27.0 Left leg numbness R20.0 Transient left leg weakness R29.898
[2023-01-08] MEDS: pantoprazole DR 40 mg Tablet PO (08:39)
[2023-01-08] MEDS: aspirin 325 mg Tablet PO (08:39)
[2023-01-08] MEDS: carbidopa-levodopa ER 50-200mg Tablet 1 EACH PO ×3 (08:39→21:00)
[2023-01-08] MEDS: carbidopa-levodopa 25-100mg Tablet 1 EACH PO ×2 (08:40→18:32)
[2023-01-08] MEDS: finasteride 5 mg Tablet PO (08:40)
--- NOTE | 2023-01-08 10:19 | PC.CHAP ---
Pastoral Care Encounter/Spiritual Assessment Type of Contact [] Declined director internal communications visit [] Patient/Family/Request visit [] Outpatient visit [] Follow-up visit [] Physician referral [] Code/Alert [x] Routine visit [] Staff referral [] Actively dying [] Patient sleeping [x] Family support [] [] Out of room [] Palliative care [] [] Receiving care in room [] Pre-surgical visit [] Trauma [] Long length of stay [] ICU visit [] Other: Relational/Emotional Strength [x] Patient feels connected with others/family/visitors/staff [] Distress [] Loneliness/isolation [] Abandonment Spirituality of Patient [x] Person of [place] [x] Attends Pentecostalism of their [place] [x] Believes in Prayer [x] Reads Bible or Zoroastrianism materials [] There are Spiritual issues to be addressed Acid Plant Helper Interventions [x] Prayer [x] Active listening [x] Non-anxious presence [x] Spiritual/emotional support [] Crisis/trauma care [] Spiritual counseling [] Bereavement support [] Provided bereavement packet [] Provided Bible/devotional materials [] Provided toy/stuffed animal, coloring book to patient or family member [] Provided Communion [] Anointing/[place] [] Salvation [x] Completed spiritual assessment [] Other: Impact on Illness or Injury [] Angry [] Fearful [] Anxious [] Often cries [] Exhaustion [] Unable to work [] Unable to attend mu-ism [] Unable to walk/stand [] Unable to read [] Unable to drive [] Unable to eat/drink [] Unable to sleep [] Unable to be with family [] Patient intubated [] Other: Summary Time spent with patient 10 min
--- NOTE | 2023-01-08 11:10 | P.PN_ITS ---
Subjective Subjective: Patient received urinary catheter overnight. Gross hematuria noted this morning in Jon bag. Blood clots are minimal. He has history of hematuria, previously seen by urology / Laureen with etiology felt to be prostate. Spouse reports they have an appt with Urology in [place] in February. Patient remains very confused per daughter and spouse. He appears somewhat impulsive. Spouse notes similar symptoms with previous UTI. Gerard reports he doesn't feel well overall. Medications: Reviewed: Yes Vitals/I&O/Wt Last Vital Signs Temp 98.4 F 01/08/23 08:00 Pulse 86 01/08/23 08:00 Resp 16 01/08/23 08:00 BP 150/79 01/08/23 08:00 Pulse Ox 98 01/08/23 07:14 O2 Del Method Room Air 01/07/23 16:02 01/07/23 01/08/23 01/08/23 22:59 06:59 14:59 Intake Total 1600 / 2080 Output Total 1450 / 1650 Balance 1600 / 1880 -1450 / 430 Weight last 48 hrs Weight 81.647 kg Physical Exam Narrative: General: Patient is awake and alert. Sitting in bedside chair. Head: EOMI. Masked facies. Neck: No JVD. Cardiovascular: RRR. No gallops. No murmurs. Lungs: Clear to auscultation, no use of accessory muscles, no crackles or wheezes. Skin: No jaundice. No rashes. Abdomen: Normal bowel sounds, abdomen soft and nontender. Genito Urinary: Catheter with gross hematuria with minimal clots. Extremities: No cyanosis or clubbing. Musculoskeletal: No erythematous joints. Neurological: No myoclonus. A full neurological assessment was not performed. Urinary Catheter Management: Jon: Cath Placed During This Visit: yes Reason for Continuing Indwelling Catheter: Acute Urinary Retention or Obstruction Urinary Catheter Date of Insertion: 01/07/23 Data 01/08/23 06:15 01/08/23 06:15 A&P Assessment and plan (1) Acute stroke due to ischemia: Imaging reviewed Follow up carotid US, arterial doppler of BLE Echo reviewed, no acute findings, diastolic dysfunction Continue aspirin, may consider dose reduction if hematuria worsens, will need to d/w neuro Continue statin Continue physical therapy Occupational therapy requested Telemetry monitoring to evaluate for occult atrial fibrillation (2) Encephalopathy acute: Patient remains confused, may be solely related to acute stroke, will evaluate for other etiologies Urinalysis ordered, anticipate multiple abnormalities D/w spouse, she favors treatment if UA suggests possible UTI which is highly likely Neuro following, appreicate recommendations High risk for delirium, discussed precautions with family Patient is high fall risk, he requires continuous monitoring (3) Gross hematuria: Possibly related to traumatic Jon versus platelet dysfunction from aspirin, or possibly both Fortunately only minimal blood clots, continue to monitor Continue Jon for now, no indication to start continuous bladder irrigation; in fact catheter exchange could worsen symptoms (4) BPH with urinary obstruction: Continue home finasteride Found to have urinary retention Conservative efforts failed and Jon catheter was placed overnight Has follow up with urology in February (5) Parkinsons: Continue home meds Defer any parkinson med changes to neuro (6) Thrombocytopenia: Minimal with PLT 149 Stop IVF Monitor Plan DVT ppx: Hold Lovenox d/t gross hemauria. SCD Code: Full Code Attestations Medical Necessity Statement*: Patient requires ongoing hospitalization for further imaging studies, telemetry, serial labs, therapy, and supportive care. Coding Level of Care Code Acute Code for [facility] Fwd Diagnoses Acute stroke due to ischemia I63.9 Encephalopathy acute G93.40 Gross hematuria R31.0 BPH with urinary obstruction N40.1; N13.8 Parkinsons G20 Thrombocytopenia D69.6
[2023-01-08 15:08] LABS: Urine Appearance Cloudy (CLEAR); Urine Color Red (Yellow)
[2023-01-08 15:09] LABS: Add Urine Microscopic? YES; Bilirubin Urine Neg (Negative); Blood Urine 3+ (Negative); Glucose Urine UA Norm (Normal); Ketones Urine 1+ (Negative); Leukocyte Esterase Urine Trace (Negative); Nitrate Urine Negative (Negative); Protein Urine 3+ (Negative); Specific Gravity, Urine 1.025 (1.005-1.030); Urobilinogen Urine 1 mg/dL (Negative); pH Urine 5 (5-7)
[2023-01-08 15:13] LABS: RBC Urine TOO NUMEROUS TO CNT /hpf (0-2); WBC Urine 40-55 /hpf (0-5)
[2023-01-08 15:14] LABS: Add Urine Culture? Yes; Bacteria Urine 1+ /hpf; Mucus Urine 2+ /hpf; Oval Fat Bodies Urine 1+ /hpf
[2023-01-08] MEDS: cefTRIAXone 1,000 MG in sodium chloride 0.9% (plus) 50 ML 100 MG IV (17:03)
[2023-01-08] MEDS: atorvastatin 40 mg Tablet PO (21:00)
[2023-01-09] VITALS (10 sets, daily range): BP systolic 100–188; BP diastolic 60–100; PULSE 75–95; RESP 12–17; TEMP 36.4–37; O2SAT 95–99
[2023-01-09 06:30] LABS: Basophils % 0.6 %; Eosinophils # 0.2 10^3/uL (0.0-0.8); Eosinophils % 2.9 %; Hematocrit 41.5 % (37-53); Lymphocytes # 1.5 10^3/uL (0.8-4.8); Lymphocytes % 22.9 %; Mean Corpuscular HGB Conc 32.8 g/dL (30-55); Mean Corpuscular Hemoglobin 29.5 pg (27-33); Mean Platelet Volume 11.1 fL (7.4-10.4); Monocytes # 0.6 10^3/uL (0.2-0.9); Monocytes % 8.6 %; Neutrophils # 4.27 10^3/uL (1.8-7.7); Neutrophils % 64.7 %; Nucleated Red Blood Cells % 0 %; Platelet Count 153 10^3/cmm (157-399); Red Blood Count 4.61 10^6/uL (3.85-5.65); Red Cell Distribution Width 13.2 % (12.1-15.1)
[2023-01-09 06:47] LABS: Albumin Level 3.5 g/dL (3.5-5.2); Blood Urea Nitrogen 17 mg/dL (8-23); Calcium 9.2 mg/dL (8.5-10.5); Carbon Dioxide 23 mmol/L (22-29); Chloride 108 mmol/L (98-107); Glucose 93 mg/dL (65-115); Magnesium 2.3 mg/dL (1.7-2.3); Phosphorus 3.3 mg/dL (2.5-4.5); Sodium 140 mmol/L (136-145)
[2023-01-09 06:53] LABS: Creatinine Clr Calc Pharmacy 79.6446
--- NOTE | 2023-01-09 07:58 | PM.PN ---
Subjective Subjective: History of Present Illness Gerard Najera is a 82 year old male with a history of hypotension with syncopal episodes during ambulation addressed by cardiology in the past and diagnosed with syncope, Parkinson disease diagnosed approximately 3 to 4 years after the patient began experiencing syncopal episodes, benign prostate hypertrophy with urinary obstruction, and osteoarthritis of the left hip.? According to the patient's and daughter who was present at the patient's bedside, the patient was in his usual state of health and doing well prior to admission.? The patient stated that they routinely take walks and the patient participates at the recreational center.? On 01/04/2023 the patient experienced a recurrent syncopal episode preceded by dizziness with while standing and leaning against the bathroom door.? According to the patient's the patient did not actually lose consciousness but suddenly dropped to the floor.? The patient's stated that she assisted the patient up from the floor and assisted him to bed and he slept for several hours and then arose and was doing okay.? On 01/05/2023 the patient was doing well and went to bed early.? She stated the patient was also doing okay Saturday night on 01/05/2023.? On Saturday morning on 01/06/2023 the patient got up to use the bathroom and was okay but later that day he again got up to walk with his walker and was displaying difficulty ambulating with magnetic gait in the left lower extremity.? The patient stated that he has been experiencing paroxysmal episodes of numbness and weakness in the left leg when standing and he feels as though he is about to fall he will call out to the family and then lose tone in the left lower extremity.? The patient denied any back pain.? The family called 911 and the patient was brought to the hospital on 01/06/2023 around midnight and was admitted.? Head CT scan performed on 01/07/2023 was reported to be negative for any acute findings.? Lumbar CT scan was also obtained on 01/07/2023 and reported to be negative.?The family informing the patient was diagnosed with Parkinson disease by a neurologist in [place].? The patient was on Sinemet 25/100 mg tablets 3 times a day but on 11/16/2022 Sinemet 50/200 mg tablets 3 times a day was started and Sinemet 25/100 mg tablets were decreased to 1 twice a day.? Patient was continued on rasagiline 1 mg p.o. daily.? Patient was scheduled for head MRI with and without contrast to assess for strokes and space-occupying lesions and to evaluate for atrophy of the substantia nigra in the midbrain.? Carotid duplex study, 2D echocardiogram and cardiac telemetry monitoring ordered.? Patient was continued on fall precautions.? Head MRI was abnormal secondary to??8 mm focus of acute ischemia along the RIGHT lateral thalamus and posterior limb of RIGHT internal capsule. No other foci of acute ischemia.? Moderate small vessel changes moderate parenchymal volume loss. Small vessel changes in the doug.? Moderate symmetric atrophy temporal lobes hippocampal formations.? No abnormal gadolinium enhancement.? 2D echocardiogram performed on 01/07/2023 revealed no significant abnormalities compared to previous study.? Ejection fraction 55 to 60%.? Carotid duplex study pending at the time of this dictation.? According to the patient's who was at the bedside, patient was restless last night.? She also stated that he has been experiencing blood in his Jon and has a history of blood in his urine in the past.? Labs for B12, folate, magnesium, vitamin D and thyroid profile? were unrevealing. The patient's condition has remained essentially unchanged. According to the patient's the patient slept better last night. Arterial Dopplers on the lower extremities were reported to be unrevealing. Past medical history: Syncope, addressed by cardiology in the past Parkinson disease diagnosed by a neurologist in [facility] Hypotension Osteoarthritis of left hip Benign prostate hypertrophy with urinary obstruction Drug allergies: Ropinirole type of reaction unknown Sulfonamide antibiotics type reaction unknown Current medications: Sinemet 25/100 mg tablets 1 p.o. twice daily Sinemet 50/200 mg tablets 1 p.o. 3 times daily Rasagiline 1 mg p.o. daily Vistaril 10 mg p.o. nightly Minocycline 50 mg p.o. daily for rosacea Vitamin D3 2000 international units p.o. daily Finasteride 5 mg p.o. daily for bladder Magnesium 350 mg p.o. daily Past medications: Ibuprofen discontinued during this hospitalization following discovery of the patient experiencing a stroke prior to admission. Stroke discovered on head MRI Habits: None Family history: Remarkable for a mother with questionable Parkinson disease Review of Systems General: Reports: 10 or more systems reviewed and unremarkable except in HPI and below Vitals/I&O/Wt Last Vital Signs Temp 98.6 F 01/09/23 07:10 Pulse 81 01/09/23 07:10 Resp 17 01/09/23 07:10 BP 170/100 01/09/23 07:10 Pulse Ox 99 01/09/23 07:10 O2 Del Method Room Air 01/09/23 07:10 01/08/23 01/09/23 01/09/23 22:59 06:59 14:59 Output Total 300 / 300 500 / 800 Balance -300 / 180 -500 / -320 Physical Exam Narrative: The patient is alert and oriented x3.? Speech fluent.? Head normocephalic.? Neck supple.? Cranial nerves II through XII intact.? Pupils equal round and reactive to light and accommodation.? Extraocular movements intact.? Motor testing grossly nonfocal at 5/5.? Patient did display tremors in the upper extremities when attempting to use his hands.? Deep tendon reflexes 1+ bilaterally.? Plantar responses flexor bilaterally.? There was no clonus.? There was no obvious spasticity or cogwheel rigidity while patient's was lying in bed.? No: Gait was not tested secondary to reports of falls.? Sensory examination was intact to gross modalities.? Throat clear.? Lungs clear.? Heart regular rhythm and rate.? Extremities were negative for clubbing cyanosis or edema.? Patient does have signs of right total knee replacement.? According to the patient's , following the patient's fall on 01/06/2023 the patient landed on his left side and injured his left knee and it was swollen.? But I did not observe any obvious swelling today. Urinary Catheter Management: Jon: Cath Placed During This Visit: yes Reason for Continuing Indwelling Catheter: Acute Urinary Retention or Obstruction Urinary Catheter Date of Insertion: 01/07/23 Data 01/09/23 06:04 01/09/23 06:04 A&P Assessment and plan (1) Acute stroke due to ischemia: Impression: 1.??8 mm focus of acute ischemia along the RIGHT lateral thalamus and posterior limb of RIGHT internal capsule. 1a. Parkinson disease diagnosed by a neurologist in [facility] 2.? Paroxysmal episodes of ataxia and gait difficulty associated with falling preceded by left leg weakness and numbness without alteration in consciousness since 01/06/2023 3.? Syncope and near syncope addressed by cardiology in the past 4.? History of hypotension 5.? Episode of confusion where patient did not recognize his family, resolved Plan: 1.? Continue cardiac telemetry monitoring to assess for cardiac arrhythmia 2.? Continue Fall precautions 3.?Will adjust Parkinson medications as needed/tolerated on an outpatient basis once patient has improved from the acute stroke involving the right hemisphere/right subcortical region and discharged from acute care setting 4.? Ibuprofen was discontinued since nonsteroidal anti-inflammatory medications other than aspirin have been reported to increased potential risk for stroke and myocardial infarction 5.? Continue aspirin and lipid-lowering agent per NIH stroke protocol 6.? Continue occupational therapy and physical therapy and follow their recommendations regarding whether or not patient will require inpatient rehabilitation 7. No further recommendations from neurological standpoint at this time. Please call if needed. Please schedule patient for follow-up in the neurology office 2 weeks after discharge from acute care facility. (2) Parkinsons: (3) Transient left leg weakness: (4) Encephalopathy acute: Attestations Medical Necessity Statement*: The patient was evaluated by neurology for Parkinson disease, ataxia and transient left leg weakness Coding Level of Care Code 95665 Diagnoses Acute stroke due to ischemia I63.9 Parkinsons G20 Transient left leg weakness R29.898 Encephalopathy acute G93.40
[2023-01-09] MEDS: carbidopa-levodopa 25-100mg Tablet 1 EACH PO ×2 (08:44→18:25)
[2023-01-09] MEDS: aspirin 325 mg Tablet PO (08:44)
[2023-01-09] MEDS: finasteride 5 mg Tablet PO (08:44)
[2023-01-09] MEDS: pantoprazole DR 40 mg Tablet PO (08:44)
[2023-01-09] MEDS: carbidopa-levodopa ER 50-200mg Tablet 1 EACH PO ×3 (08:44→21:59)
--- NOTE | 2023-01-09 10:55 | PC.CHAP ---
Pastoral Care Encounter/Spiritual Assessment Type of Contact [] Declined leach tank tender visit [] Patient/Family/Request visit [] Outpatient visit [] Follow-up visit [] Physician referral [] Code/Alert [x] Routine visit [] Staff referral [] Actively dying [] Patient sleeping [] Family support [] [] Out of room [] Palliative care [] [] Receiving care in room [] Pre-surgical visit [] Trauma [] Long length of stay [] ICU visit [] Other: Relational/Emotional Strength [x] Patient feels connected with others/family/visitors/staff [] Distress [] Loneliness/isolation [] Abandonment Spirituality of Patient [] Person of [place] [] Attends Gnosticist of their [place] [x] Believes in Prayer [] Reads Bible or Spiritism materials [] There are Spiritual issues to be addressed Adjunct Instructor Of Women'S Studies Interventions [x] Prayer [x] Active listening [] Non-anxious presence [] Spiritual/emotional support [] Crisis/trauma care [] Spiritual counseling [] Bereavement support [] Provided bereavement packet [] Provided Bible/devotional materials [] Provided toy/stuffed animal, coloring book to patient or family member [] Provided Communion [] Anointing/[place] [] Salvation [] Completed spiritual assessment [] Other: Impact on Illness or Injury [] Angry [] Fearful [] Anxious [] Often cries [] Exhaustion [] Unable to work [] Unable to attend mormonism [] Unable to walk/stand [] Unable to read [] Unable to drive [] Unable to eat/drink [] Unable to sleep [] Unable to be with family [] Patient intubated [] Other: Summary Time spent with patient 15 min
--- NOTE | 2023-01-09 12:55 | P.PN_ITS ---
Subjective Subjective: Per report, patient was not responsive to therapy this morning as he was not arousing. Upon evalation, he is awake and alert. Sitting on edge of bed. Spouse is bedside and supportive. Gerard recalls his fall from Saturday. He knows he is at the hospital. Spouse reports he has been emotional this morning. He is getting up to sit in the chair and start breakfast. Gross hematuria persists without significant blood clot formation. Staff presents reporting Jon bag emptied earlier this morning. Fortunately, there were no significant clots. He reportedly slept much better last night. Medications: Reviewed: Yes Vitals/I&O/Wt Last Vital Signs Temp 97.5 F L 01/09/23 11:06 Pulse 79 01/09/23 11:06 Resp 17 01/09/23 11:06 BP 100/60 01/09/23 11:06 Pulse Ox 97 01/09/23 11:06 O2 Del Method Room Air 01/09/23 11:06 01/08/23 01/09/23 01/09/23 22:59 06:59 14:59 Intake Total 240 / 240 Output Total 300 / 300 500 / 800 600 / 600 Balance -300 / 180 -500 / -320 -360 / -360 Physical Exam Narrative: General: Patient is awake and alert. Sitting up. Conversational. Very pleasant. Head: EOMI. Neck: No JVD. Cardiovascular: Normal peripheral perfusion. Lungs: Non-labored without accessory muscle use. On room air. Skin: No jaundice. Abdomen: Not distended. Genito Urinary: Catheter with gross hematuria with minimal clots, unchanged. Extremities: No cyanosis or clubbing. Musculoskeletal: No erythematous joints. Neurological: No myoclonus. Urinary Catheter Management: Jon: Cath Placed During This Visit: yes Reason for Continuing Indwelling Catheter: Acute Urinary Retention or Ob struction Urinary Catheter Date of Insertion: 01/07/23 Data 01/09/23 06:04 01/09/23 06:04 Micro: Microbiology 01/08/23 14:13 Urine Culture - Preliminary Urine,Clean Catch A&P Assessment and plan (1) Acute stroke due to ischemia: US studies reviewed, both w/ reassuring results Continue aspirin Continue statin Continue physical therapy, occupational therapy, and speech therapy He will requires post acute care Telemetry (2) Encephalopathy acute: Mentation is improving Remains at high risk of delirium in the setting of hospitalization, recent stroke, parkinsons, etc Delirium precautions Encourage sleep at night, awake during the day Continue abx (3) Gross hematuria: Gross hematuria persists, similar to yesterday Continuing to monitor closely Continue Jon (4) 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 SCD Code: Full Code Attestations Medical Necessity Statement*: Patient requires ongoing hospitalization for telemetry, serial labs, therapy, and supportive care. Coding Level of Care Code Acute Code for [facility] Fwd Diagnoses Acute stroke due to ischemia I63.9 Encephalopathy acute G93.40 Gross hematuria R31.0 BPH with urinary obstruction N40.1; N13.8 Parkinsons G20 Thrombocytopenia D69.6
[2023-01-09] MEDS: cefTRIAXone 1,000 MG in sodium chloride 0.9% (plus) 50 ML 100 MG IV (15:45)
[2023-01-09] MEDS: atorvastatin 40 mg Tablet PO (21:59)
[2023-01-10 04:35] VITALS: BP 171/92; PULSE 95; RESP 17; TEMP 36.6; O2SAT 98
[2023-01-10 06:00] VITALS: PULSE 102
[2023-01-10 06:10] LABS: Basophils # 0.1 10^3/uL (0.0-0.1); Basophils % 0.7 %; Eosinophils # 0.1 10^3/uL (0.0-0.8); Hematocrit 41.2 % (37-53); Lymphocytes # 1.1 10^3/uL (0.8-4.8); Lymphocytes % 16.2 %; Mean Corpuscular HGB Conc 32.8 g/dL (30-55); Mean Corpuscular Hemoglobin 29.3 pg (27-33); Mean Corpuscular Volume 89.6 fl (82-101); Mean Platelet Volume 11.5 fL (7.4-10.4); Monocytes # 0.6 10^3/uL (0.2-0.9); Monocytes % 8.6 %; Neutrophils # 5.04 10^3/uL (1.8-7.7); Neutrophils % 72.1 %; Nucleated Red Blood Cells % 0 %; Platelet Count 154 10^3/cmm (157-399); Red Cell Distribution Width 13.1 % (12.1-15.1); White Blood Count 6.99 10^3/uL (3.29-11.43)
[2023-01-10 06:37] LABS: Anion Gap 14.7 (5-19); Blood Urea Nitrogen 20 mg/dL (8-23); Calcium 9.3 mg/dL (8.5-10.5); Carbon Dioxide 24 mmol/L (22-29); Chloride 106 mmol/L (98-107); Creatinine Clr Calc Pharmacy 79.6446; Glucose 112 mg/dL (65-115); Phosphorus 3.4 mg/dL (2.5-4.5); Potassium 3.7 mmol/L (3.5-5.1); Sodium 141 mmol/L (136-145)
[2023-01-10 07:49] VITALS: BP 149/91; PULSE 78; RESP 15; O2SAT 98
[2023-01-10 08:43] LABS: SARS Covid-2 Antigen negative (Negative)
[2023-01-10] MEDS: finasteride 5 mg Tablet PO (09:48)
[2023-01-10] MEDS: carbidopa-levodopa 25-100mg Tablet 1 EACH PO ×2 (09:48→17:25)
[2023-01-10] MEDS: polyethylene glycol 3350 Pkt 17 gm PO (09:48)
[2023-01-10] MEDS: pantoprazole DR 40 mg Tablet PO (09:48)
[2023-01-10] MEDS: aspirin 325 mg Tablet PO (09:48)
[2023-01-10] MEDS: carbidopa-levodopa ER 50-200mg Tablet 1 EACH PO ×3 (09:50→20:34)
[2023-01-10 11:40] LABS: Vitamin B6 Plasma 13.3 ng/mL (2.1-21.7)
[2023-01-10 12:00] VITALS: BP 145/80
--- NOTE | 2023-01-10 13:11 | P.PN_ITS ---
Subjective Subjective: Patient reportedly didn't sleep as well last night. Spouse is bedside and supportive. She reports he is more confused than yesterday. He is awake and alert. Denies any pain. Remembers falling but does not recall the stroke diagnosis. We briefly reviewed his hospital stay. He is pleasant. Gross hematuria is unchanged. Discussed plan of care and spouse/pt in agreement. Medications: Reviewed: Yes Vitals/I&O/Wt Last Vital Signs Temp 97.9 F 01/10/23 04:35 Pulse 78 01/10/23 07:49 Resp 15 01/10/23 07:49 BP 149/91 01/10/23 07:49 Pulse Ox 98 01/10/23 07:49 O2 Del Method Room Air 01/10/23 07:49 01/09/23 01/10/23 01/10/23 22:59 06:59 14:59 Intake Total 290 / 530 840 / 840 Output Total 800 / 1400 300 / 1700 Balance -510 / -870 -300 / -1170 840 / 840 Physical Exam Narrative: General: Patient is awake and alert. In bedside chair. Head: EOMI. Neck: No JVD. Cardiovascular: Normal peripheral perfusion. Lungs: Non-labored without accessory muscle use. Skin: No jaundice. Abdomen: Not distended. Genito Urinary: Catheter with gross hematuria w/o clots. Extremities: No cyanosis or clubbing. Musculoskeletal: No erythematous joints. Neurological: No myoclonus. Urinary Catheter Management: Jon: Cath Placed During This Visit: yes Reason for Continuing Indwelling Catheter: Acute Urinary Retention or Obstruction Urinary Catheter Date of Insertion: 01/07/23 Data 01/10/23 05:49 01/10/23 05:49 Micro: Microbiology 01/08/23 14:13 Urine Culture - Final Urine,Clean Catch A&P Assessment and plan (1) Acute stroke due to ischemia: Continue aspirin and statin Continue PT/OT/ST Plan on postacute SNF rehab when medically ready, possibly Saturday pending clinical course (2) Encephalopathy acute: Mentation is slightly worse this morning, some waxing and waning Delirium precautions Encourage sleep at night, awake during the day Continue abx (3) Gross hematuria: Discussed at length Proceed with Jon removal Monitor for urinary retention and persistent hematuria He will require briefs for incontinence (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 SCD Code: Full Code Attestations Medical Necessity Statement*: Patient requires ongoing hospitalization for labs, therapy, and supportive care. Coding Level of Care Code Acute Code for [facility] Fwd Diagnoses Acute stroke due to ischemia I63.9 Encephalopathy acute G93.40 Gross hematuria R31.0 BPH with urinary obstruction N40.1; N13.8 Parkinsons G20 Thrombocytopenia D69.6
[2023-01-10] MEDS: cefTRIAXone 1,000 MG in sodium chloride 0.9% (plus) 50 ML 100 MG IV (16:01)
[2023-01-10 19:52] VITALS: BP 123/51; PULSE 78; RESP 16; TEMP 36.5; O2SAT 98
[2023-01-10] MEDS: atorvastatin 40 mg Tablet PO (20:34)
[2023-01-10 23:15] VITALS: BP 183/91; PULSE 83; RESP 16; TEMP 36.9; O2SAT 98
[2023-01-11 04:59] VITALS: BP 193/99; PULSE 80; RESP 16; TEMP 36.8; O2SAT 97
[2023-01-11 08:00] VITALS: BP 130/55; PULSE 98; RESP 16; O2SAT 91
[2023-01-11] MEDS: carbidopa-levodopa 25-100mg Tablet 1 EACH PO ×2 (09:52→17:35)
[2023-01-11] MEDS: carbidopa-levodopa ER 50-200mg Tablet 1 EACH PO ×3 (09:52→20:33)
[2023-01-11] MEDS: aspirin 325 mg Tablet PO (09:52)
[2023-01-11] MEDS: finasteride 5 mg Tablet PO (09:52)
[2023-01-11] MEDS: polyethylene glycol 3350 Pkt 17 gm PO (09:52)
[2023-01-11] MEDS: pantoprazole DR 40 mg Tablet PO (09:52)
--- NOTE | 2023-01-11 14:27 | PC.SOCIAL ---
Pg 2 IMM Explained to pt Pg 2 IMM. No questions voiced. Provided pt a copy. Initialed, dated, & timed a copy & placed in chart.
--- NOTE | 2023-01-11 14:40 | PM.PN ---
Subjective Subjective: Mentation similar to prior exam. Patient is awake and alert. He does not fully retain why he is in the hospital. He denies any new complaints. Gross hematuria is unchanged per report. No evidence of significant urinary retention. Medications: Reviewed: Yes Vitals/I&O/Wt Last Vital Signs Temp 98.2 F 01/11/23 04:59 Pulse 98 01/11/23 08:00 Resp 16 01/11/23 08:00 BP 130/55 01/11/23 08:00 Pulse Ox 91 01/11/23 08:00 O2 Del Method Room Air 01/11/23 08:00 01/10/23 01/11/23 01/11/23 22:59 06:59 14:59 Intake Total 1050 / 1890 360 / 360 Output Total 200 / 200 300 / 500 Balance 850 / 1690 -300 / 1390 360 / 360 Physical Exam Narrative: General: Patient is awake and alert. Conversational.Spouse is bedside and supportive. Head: EOMI. Neck: No JVD. Cardiovascular: Normal peripheral perfusion. Lungs: Non-labored without accessory muscle use. Skin: No jaundice. Abdomen: Not distended. Extremities: No cyanosis or clubbing. Musculoskeletal: No erythematous joints. Neurological: No myoclonus. Urinary Catheter Management: Jon: Cath Placed During This Visit: yes, but has since been removed by the nurse Reason for Continuing Indwelling Catheter: Acute Urinary Retention or Obstruction Urinary Catheter Date of Insertion: 01/07/23 Date Urinary Catheter Removed: 01/10/23 Time Urinary Catheter Discontinued: 10:30 Data 01/10/23 05:49 01/10/23 05:49 Micro: Microbiology 01/08/23 14:13 Urine Culture - Final Urine,Clean Catch A&P Assessment and plan (1) Gross hematuria: Monitor for retention, unlikely given no blood clots May consider ASA dose adjustment over the weekend pending clinical course (2) Acute stroke due to ischemia: Continue aspirin and statin Continue therapy, plan for postacute once gross hematuria resolves (3) Parkinsons: Continue current medications Defer to Dr Woods (4) Encephalopathy acute: Encourage sleep at night, awake during daytime hours Continue abx (5) BPH with urinary obstruction: Continue home finasteride Has follow up with urology in February (6) Thrombocytopenia: Monitor Plan DVT ppx: Hold Lovenox d/t gross hemauria. SCD Code: Full Code Attestations Medical Necessity Statement*: Patient requires ongoing hospitalization for monitoring of urine, therapy, and supportive care. Coding Level of Care Code Acute Code for [facility] Fwd Diagnoses Gross hematuria R31.0 Acute stroke due to ischemia I63.9 Parkinsons G20 Encephalopathy acute G93.40 BPH with urinary obstruction N40.1; N13.8 Thrombocytopenia D69.6
[2023-01-11] MEDS: cefTRIAXone 1,000 MG in sodium chloride 0.9% (plus) 50 ML 100 MG IV (15:27)
[2023-01-11 16:00] VITALS: BP 154/81; PULSE 101; RESP 16; TEMP 37; O2SAT 93
--- NOTE | 2023-01-11 18:35 | PC.NURSE ---
Notified Dr. Thorne. Bladder Scan for patient was 300 ml, patient void 150 ml after scann
[2023-01-11 20:00] VITALS: BP 119/72; PULSE 81; RESP 17; TEMP 36.9; O2SAT 98
[2023-01-11] MEDS: atorvastatin 40 mg Tablet PO (20:33)
[2023-01-12] VITALS (7 sets, daily range): BP systolic 105–185; BP diastolic 64–92; PULSE 78–95; RESP 16–17; TEMP 36.4–36.7; O2SAT 95–100
[2023-01-12] MEDS: amlodipine 5 mg Tablet PO (10:02)
[2023-01-12] MEDS: carbidopa-levodopa 25-100mg Tablet 1 EACH PO ×2 (10:02→17:28)
[2023-01-12] MEDS: aspirin 81 mg EC Tablet PO (10:02)
[2023-01-12] MEDS: carbidopa-levodopa ER 50-200mg Tablet 1 EACH PO ×3 (10:02→21:03)
[2023-01-12] MEDS: pantoprazole DR 40 mg Tablet PO (10:02)
[2023-01-12] MEDS: finasteride 5 mg Tablet PO (10:03)
[2023-01-12] MEDS: polyethylene glycol 3350 Pkt 17 gm PO (10:03)
--- NOTE | 2023-01-12 12:36 | P.PN_ITS ---
Subjective Subjective: Per nursing report, gross hematuria persists. Patient sleeping comfortably. Spouse is bedside and supportive. Reports continued confusions similar to yesterday. Discussed plan of care. Medications: Reviewed: Yes Vitals/I&O/Wt Last Vital Signs Temp 97.9 F 01/12/23 11:26 Pulse 81 01/12/23 11:26 Resp 16 01/12/23 11:26 BP 105/64 01/12/23 11:26 Pulse Ox 97 01/12/23 11:26 O2 Del Method Room Air 01/12/23 11:26 01/11/23 01/12/23 01/12/23 22:59 06:59 14:59 Intake Total 170 / 530 480 / 480 Output Total 915 / 915 250 / 1165 100 / 100 Balance -745 / -385 -250 / -635 380 / 380 Physical Exam Narrative: General: Patient is sleeping comfortably. Neck: No JVD. Cardiovascular: Normal peripheral perfusion. Lungs: Non-labored without accessory muscle use. Skin: No jaundice. Abdomen: Not distended. Extremities: No cyanosis or clubbing. Musculoskeletal: No erythematous joints. Neurological: No myoclonus. Urinary Catheter Management: Jon: Cath Placed During This Visit: yes, but has since been removed by the nurse Reason for Continuing Indwelling Catheter: Acute Urinary Retention or Obstructi on Urinary Catheter Date of Insertion: 01/07/23 Date Urinary Catheter Removed: 01/10/23 Time Urinary Catheter Discontinued: 10:30 Data 01/10/23 05:49 01/10/23 05:49 A&P Assessment and plan (1) Gross hematuria: ASA dose adjusted Monitoring closely (2) Acute stroke due to ischemia: Continue aspirin and statin ASA adjusted to 81 mg Continue therapy, plan for postacute once gross hematuria resolves (3) Parkinsons: Continue current medications Defer to Dr Woods (4) Encephalopathy acute: Encourage sleep at night, awake during daytime hours Continue abx (5) BPH with urinary obstruction: Continue home finasteride Has follow up with urology in February (6) Thrombocytopenia: Monitor Plan DVT ppx: Hold Lovenox d/t gross hemauria. SCD Code: Full Code Attestations Medical Necessity Statement*: Patient requires ongoing hospitalization for monitoring of urine, therapy, and supportive care. Coding Level of Care Code Acute Code for [facility] Fwd Diagnoses Gross hematuria R31.0 Acute stroke due to ischemia I63.9 Parkinsons G20 Encephalopathy acute G93.40 BPH with urinary obstruction N40.1; N13.8 Thrombocytopenia D69.6
[2023-01-12] MEDS: cefTRIAXone 1,000 MG in sodium chloride 0.9% (plus) 50 ML 100 MG IV (15:34)
[2023-01-12] MEDS: atorvastatin 40 mg Tablet PO (21:03)
[2023-01-13 05:00] VITALS: BP 122/72; PULSE 92; RESP 18; O2SAT 98
[2023-01-13 06:19] LABS: Basophils % 0.7 %; Eosinophils # 0.2 10^3/uL (0.0-0.8); Eosinophils % 3.7 %; Hematocrit 40.2 % (37-53); Lymphocytes # 1.2 10^3/uL (0.8-4.8); Lymphocytes % 21.5 %; Mean Corpuscular HGB Conc 31.6 g/dL (30-55); Mean Corpuscular Hemoglobin 29.3 pg (27-33); Mean Corpuscular Volume 92.6 fl (82-101); Mean Platelet Volume 12.5 fL (7.4-10.4); Monocytes # 0.4 10^3/uL (0.2-0.9); Neutrophils # 3.54 10^3/uL (1.8-7.7); Neutrophils % 65.7 %; Nucleated Red Blood Cells % 0 %; Platelet Count 134 10^3/cmm (157-399); Red Blood Count 4.34 10^6/uL (3.85-5.65); Red Cell Distribution Width 13.1 % (12.1-15.1); White Blood Count 5.39 10^3/uL (3.29-11.43)
[2023-01-13 06:42] LABS: Anion Gap 13.1 (5-19); Blood Urea Nitrogen 25 mg/dL (8-23); Calcium 9.5 mg/dL (8.5-10.5); Carbon Dioxide 27 mmol/L (22-29); Chloride 105 mmol/L (98-107); Creatinine Clr Calc Pharmacy 79.6446; Glucose 100 mg/dL (65-115); Magnesium 2.3 mg/dL (1.7-2.3); Phosphorus 3.5 mg/dL (2.5-4.5); Potassium 4.1 mmol/L (3.5-5.1); Sodium 141 mmol/L (136-145)
[2023-01-13 08:00] VITALS: BP 150/76; PULSE 87; RESP 17; TEMP 36.9; O2SAT 99
[2023-01-13] MEDS: carbidopa-levodopa ER 50-200mg Tablet 1 EACH PO ×3 (08:44→20:32)
[2023-01-13] MEDS: carbidopa-levodopa 25-100mg Tablet 1 EACH PO ×2 (08:44→17:28)
[2023-01-13] MEDS: finasteride 5 mg Tablet PO (08:44)
[2023-01-13] MEDS: pantoprazole DR 40 mg Tablet PO (08:45)
[2023-01-13] MEDS: amlodipine 5 mg Tablet PO (08:45)
[2023-01-13] MEDS: aspirin 81 mg EC Tablet PO (08:45)
[2023-01-13] MEDS: polyethylene glycol 3350 Pkt 17 gm PO (08:45)
--- NOTE | 2023-01-13 10:38 | USR_ITS ---
PROCEDURE INFORMATION: Exam: US Abdomen; Limited Exam date and time: 01/13/2023 5:31 PM Age: 82 years old Clinical indication: Screening exam; Other: Evaluate for blood clot w/ gross hematuria TECHNIQUE: Imaging protocol: Real time ultrasound of the abdomen with image documentation. Limited exam focused on the region of clinical interest. COMPARISON: CT kidney stone [id number] 11/14/2022 9:55 AM FINDINGS: Urinary bladder: Images were obtained of the urinary bladder. Enlarged prostate gland is seen resulting in significant indentation about the urinary bladder with nodular indentation. Prostate gland measures 5.6 x 5.7 x 6.1 cm. Two rounded hyperechoic nodular foci of 1.8 x 1.3 x 1.6 cm and 1.2 x 1.9 x 1.8 cm are seen that appear to extend from the urinary bladder wall. Findings are suspicious for polypoid mass with suggestion of some component of internal flow. There is suggestion urinary bladder wall thickening, as well. No other significant abnormality. US/US bladder [id number] IMPRESSION: 1. Enlarged prostate gland with nodular indentation about the adjacent urinary bladder. Urinary bladder wall thickening. 2. Two rounded hyperechoic nodular foci are seen that appear to extend from the urinary bladder wall and suspicious for polypoid masses with suggestion of some component of internal flow. These measure 1.8 x 1.3 x 1.6 cm and 1.2 x 1.9 x 1.8 cm in size.
[2023-01-13 12:00] VITALS: BP 91/53; PULSE 89; RESP 16; TEMP 36.6; O2SAT 99
[2023-01-13] MEDS: cefTRIAXone 1,000 MG in sodium chloride 0.9% (plus) 50 ML 100 MG IV (15:14)
[2023-01-13 16:00] VITALS: BP 124/83; PULSE 83; RESP 17; TEMP 36.8; O2SAT 98
--- NOTE | 2023-01-13 16:05 | P.PN_ITS ---
Subjective Subjective: Patient denies new complaints. Working well with therapy. Gross hematuria reportedly slightly improved but still present. Spouse is bedside and supportive. Medications: Reviewed: Yes Vitals/I&O/Wt Last Vital Signs Temp 97.9 F 01/13/23 12:00 Pulse 89 01/13/23 12:00 Resp 16 01/13/23 12:00 BP 91/53 01/13/23 12:00 Pulse Ox 99 01/13/23 12:00 O2 Del Method Room Air 01/13/23 12:00 01/13/23 01/13/23 01/13/23 06:59 14:59 22:59 Intake Total 720 / 1540 1320 / 1320 Output Total 100 / 300 Balance 620 / 1240 1320 / 1320 Physical Exam Narrative: General: Patient is awake and alert. Pleasant. Conversational. Neck: No JVD. Cardiovascular: Normal peripheral perfusion. Lungs: Non-labored without accessory muscle use. Symmetric chest rise. Skin: No jaundice. Abdomen: Not distended. Extremities: No cyanosis or clubbing. Musculoskeletal: No erythematous joints. Neurological: No myoclonus. Moves all 4 extremities. Urinary Catheter Management: Jon: Cath Placed During This Visit: yes, but has since been removed by the nurse Reason for Continuing Indwelling Catheter: Acute Urinary Retention or Obstruction Urinary Catheter Date of Insertion: 01/07/23 Date Urinary Catheter Removed: 01/10/23 Time Urinary Catheter Discontinued: 10:30 Data 01/13/23 06:09 01/13/23 06:09 A&P Assessment and plan (1) Gross hematuria: Aspirin dose decreased to 81 mg Gross hematuria reportedly improving, goal remains to be macroscopic resolution, hopefully by Saturday Never passed significant amount of blood clots in urine, will check bladder ultrasound for possible residual clot Has appt to establish w/ urology in [facility] home at the end of February which is too far out to address his current gross hematuria (2) Acute stroke due to ischemia: Continue aspirin and statin ASA adjusted to 81 mg Continue therapy, plan for postacute once gross hematuria resolves (3) Parkinsons: Continue current medications Defer to Dr Woods (4) Encephalopathy acute: Encourage sleep at night, awake during daytime hours Continue abx (5) BPH with urinary obstruction: Continue home finasteride Has follow up with urology in February (6) Thrombocytopenia: Monitor Plan DVT ppx: Hold Lovenox d/t gross hemauria. SCD Code: Full Code Attestations Medical Necessity Statement*: Patient requires ongoing hospitalization for monitoring of urine, therapy, and supportive care. Coding Level of Care Code Acute Code for [facility] Fwd Diagnoses Gross hematuria R31.0 Acute stroke due to ischemia I63.9 Parkinsons G20 Encephalopathy acute G93.40 BPH with urinary obstruction N40.1; N13.8 Thrombocytopenia D69.6
[2023-01-13 19:43] VITALS: BP 108/67; PULSE 74; RESP 17; TEMP 36.9; O2SAT 98
[2023-01-13] MEDS: atorvastatin 40 mg Tablet PO (20:32)
[2023-01-14 03:23] VITALS: BP 146/75; PULSE 93; RESP 19; TEMP 36.6; O2SAT 94
[2023-01-14 08:00] VITALS: BP 143/76; PULSE 88; RESP 17; TEMP 36.7; O2SAT 100
[2023-01-14] MEDS: polyethylene glycol 3350 Pkt 17 gm PO (09:46)
[2023-01-14] MEDS: amlodipine 5 mg Tablet PO (09:47)
[2023-01-14] MEDS: finasteride 5 mg Tablet PO (09:47)
[2023-01-14] MEDS: pantoprazole DR 40 mg Tablet PO (09:47)
[2023-01-14] MEDS: carbidopa-levodopa ER 50-200mg Tablet 1 EACH PO (09:47)
[2023-01-14] MEDS: carbidopa-levodopa 25-100mg Tablet 1 EACH PO (09:47)
[2023-01-14] MEDS: aspirin 81 mg EC Tablet PO (09:47)
[2023-01-14 12:00] VITALS: BP 133/84; PULSE 80; RESP 16; TEMP 36.7; O2SAT 98
--- NOTE | 2023-01-14 12:24 | PM.DCS ---
Discharge Providers Date of Admission: 01/08/23 09:59 Date of Discharge: January 14, 2023 Attending Provider at Admission: Yadira Hendricks MD Attending Provider at Discharge: Kush Adames MD Primary Care Provider: Ismael Lau DO Diagnoses at Discharge Discharge Diagnosis (1) Gross hematuria: Status: Acute (2) Acute stroke due to ischemia: Status: Acute (3) Parkinsons: Status: Acute (4) Encephalopathy acute: Status: Acute (5) BPH with urinary obstruction: Status: Acute (6) Thrombocytopenia: Status: Acute Reason for Visit Reason for Visit: FALL Hospital Course Hospital Course 82-year-old male with history of Parkinson's, Was admitted for management evaluation of acute stroke, MRI head showed 8 mm foci of acute ischemia right lateral thalamus posterior limb internal capsule, permissive hypertension allowed, patient did well with PT OT and ST, with initiation of aspirin he developed hematuria, bladder ultrasound did not show urinary bladder wall thickening, hematuria resolved hemoglobin remained stable, he does have BPH, he does have urology follow-up in February he might need cystoscopy with urine bladder biopsy to rule out malignancy added tamsulosin, amlodipine low-dose aspirin at the time of discharge along atorvastatin. Family was counseled to stop aspirin in case there is recurrence of hematuria unless he is evaluated by the urologist. He will be given antibiotics at the time of discharge. His hematuria was likely related to Jon catheter traumatic placement with concurrent use of aspirin, after discontinuation of Jon catheter no recurrence hematuria noted, no clots noted. He is being discharged to a long-term Physical Exam Narrative: Awake and alert NIH 0 Pleasant and cooperative S1, S2 Hemodynamically stable Currently on room air Urinary Catheter Management: Jon: Cath Placed During This Visit: yes, but has since been removed by the nurse Reason for Continuing Indwelling Catheter: Acute Urinary Retention or Obstruction Urinary Catheter Date of Insertion: 01/07/23 Date Urinary Catheter Removed: 01/10/23 Time Urinary Catheter Discontinued: 10:30 Discharge Data Studies Completed and Pending Completed Studies During Hospitalization Category Date Time Status CT bony pelvis [id number] Stat Cat Scan 01/07/23 00:[address] head wo con* [id number] Stat Cat Scan 01/07/23 00:[address] lumbar spine wo con* [id number] Stat Cat Scan 01/07/23 00:21 Completed XR chest 1V portable [id number] Stat Exams 01/07/23 00:21 Completed XR femur LT min 2V* [id number] Stat Exams 01/07/23 00:21 Completed XR tibia fibula LT 2V [id number] Stat Exams 01/07/23 00:21 Completed MR head wo/w con [id number] Routine MRI 01/07/23 11:04 [place] [id number] Routine Ultrasound 01/07/23 11:01 Completed CV. echo complete* [id number] Routine Ultrasound 01/07/23 06:41 Completed US bladder [id number] Routine Ultrasound 01/13/23 10:38 Completed US carotid duplex bilateral [CV carotid duplex BI* Ultrasound 01/07/23 10:59 Completed [id number]] Routine Radiology Impressions Chest X-Ray 01/07/23 00:21 IMPRESSION: Negative for acute chest pathology. Femur X-Ray 01/07/23 00:21 IMPRESSION: No acute left femur pathology. Head CT 01/07/23 00:21 IMPRESSION: No acute intracranial abnormality. Lumbar Spine CT 01/07/23 00:21 IMPRESSION: Negative for acute lumbar spine pathology. COMMENTS: Consistent with the [employer]'s Incidental Findings Committee white paper (J Am Jomar Radiol 2018): Any incidental renal lesion less than 1 cm or classified as too small to characterize, or any incidental cystic renal lesion characterized as simple-appearing, is likely benign. No follow-up imaging is recommended for these lesions per consensus recommendations based on imaging criteria. Pelvis CT 01/07/23 00:21 IMPRESSION: 1. Negative for pelvic fracture. 2. Unusual multiple small areas of bladder wall nodular thickening. Cannot exclude the possibility of multiple intraluminal polypoid bladder masses. Correlate for hematuria. 3. Prompt outpatient urology consultation is recommended. 4. Prostatomegaly. Tibia/Fibula X-Ray 01/07/23 00:21 IMPRESSION: Negative for fracture. Bladder Ultrasound 01/13/23 10:38 IMPRESSION: 1. Enlarged prostate gland with nodular indentation about the adjacent urinary bladder. Urinary bladder wall thickening. 2. Two rounded hyperechoic nodular foci are seen that appear to extend from the urinary bladder wall and suspicious for polypoid masses with suggestion of some component of internal flow. These measure 1.8 x 1.3 x 1.6 cm and 1.2 x 1.9 x 1.8 cm in size. Laboratory Results WBC 5.39 10^3/uL (3.29-11.43) 01/13/23 06:09 RBC 4.34 10^6/uL (3.85-5.65) 01/13/23 06:09 Hgb 12.70 g/dL (11.27-16.99) 01/13/23 06:09 Hct 40.2 % (37-53) 01/13/23 06:09 MCV 92.6 fl (82-101) 01/13/23 06:09 MCH 29.3 pg (27-33) 01/13/23 06:09 MCHC 31.6 g/dL (30-55) 01/13/23 06:09 RDW 13.1 % (12.1-15.1) 01/13/23 06:09 Plt Count 134 10^3/cmm (157-399) L 01/13/23 06:09 MPV 12.5 fL (7.4-10.4) H 01/13/23 06:09 Neut % (Auto) 65.7 % 01/13/23 06:09 Lymph % (Auto) 21.5 % 01/13/23 06:09 [place] % (Auto) 8.0 % 01/13/23 06:09 Eos % (Auto) 3.7 % 01/13/23 06:09 Baso % (Auto) 0.7 % 01/13/23 06:09 Neut # (Auto) 3.54 10^3/uL (1.8-7.7) 01/13/23 06:09 Lymph # (Auto) 1.2 10^3/uL (0.8-4.8) 01/13/23 06:09 [place] # (Auto) 0.4 10^3/uL (0.2-0.9) 01/13/23 06:09 Eos # (Auto) 0.2 10^3/uL (0.0-0.8) 01/13/23 06:09 Baso # (Auto) 0.0 10^3/uL (0.0-0.1) 01/13/23 06:09 Nucleated RBC % (auto) 0 % 01/13/23 06:09 Nucleated RBCs # 0.0 /100WBC 01/13/23 06:09 PT 12.00 SECONDS (12.1-14.9) L 01/07/23 00:01 INR 0.86 (0.8-1.2) 01/07/23 00:01 APTT 29.1 SECONDS (23.9-36.7) 01/07/23 00:01 Sodium 141 mmol/L (136-145) 01/13/23 06:09 Potassium 4.1 mmol/L (3.5-5.1) 01/13/23 06:09 Chloride 105 mmol/L (98-107) 01/13/23 06:09 Carbon Dioxide 27 mmol/L (22-29) 01/13/23 06:09 Anion Gap 13.1 (5-19) 01/13/23 06:09 BUN 25 mg/dL (8-23) H 01/13/23 06:09 Creatinine 0.7 mg/dL (0.7-1.2) 01/13/23 06:09 GFR Calculation Not Reportable 01/13/23 06:09 Glucose 100 mg/dL (65-115) 01/13/23 06:09 Calculated Osmolality 292 mOsm/kg (285-295) 01/08/23 06:15 Lactic Acid 1.5 mmol/L (0.5-2.2) 01/07/23 00:01 Calcium 9.5 mg/dL (8.5-10.5) 01/13/23 06:09 Phosphorus 3.5 mg/dL (2.5-4.5) 01/13/23 06:09 Magnesium 2.3 mg/dL (1.7-2.3) 01/13/23 06:09 Total Bilirubin 0.8 mg/dL (0.15-1.2) 01/08/23 06:15 AST 24 U/L (0-40) 01/08/23 06:15 ALT < 5 U/L (0-41) 01/08/23 06:15 Alkaline Phosphatase 43 U/L (40-130) 01/08/23 06:15 Creatine Kinase 137 U/L (39-308) 01/07/23 00:01 Total Protein 5.9 g/dL (6.6-8.7) L 01/08/23 06:15 Albumin 4.0 g/dL (3.5-5.2) 01/13/23 06:09 Globulin 1.8 g/dL (1.3-4.6) 01/08/23 06:15 Vitamin B6 13.3 ng/mL (2.1-21.7) 01/07/23 12:06 Vitamin B12 827 pg/mL (232-1245) 01/07/23 00:01 25-OH Vitamin D Total 47 ng/mL (30-100) 01/07/23 00:01 Folate > 20.0 ng/mL (4.5-32.2) 01/07/23 00:01 TSH 1.89 uIU/mL (0.27-4.20) 01/07/23 00:01 Free T4 0.97 ng/dL (0.82-1.77) 01/07/23 00:01 Free T3 2.7 PG/ML (2.0-4.4) 01/07/23 00:01 Random Cortisol 16.31 ug/dL (2.47-19.5) 01/07/23 00:01 Urine Color Red (Yellow) A 01/08/23 14:13 Urine Appearance Cloudy (CLEAR) A 01/08/23 14:13 Urine pH 5 (5-7) 01/08/23 14:13 Ur Specific [place] 1.025 (1.005-1.030) 01/08/23 14:13 Urine Protein 3+ (Negative) H 01/08/23 14:13 Urine Glucose (UA) Norm (Normal) 01/08/23 14:13 Urine Ketones 1+ (Negative) H 01/08/23 14:13 Urine Blood 3+ (Negative) H 01/08/23 14:13 Urine Nitrate Negative (Negative) 01/08/23 14:13 Urine Bilirubin Neg (Negative) 01/08/23 14:13 Urine Urobilinogen 1 mg/dL (Negative) H 01/08/23 14:13 Ur Leukocyte Esterase Trace (Negative) H 01/08/23 14:13 Urine RBC Too numerous to cnt /hpf (0-2) H 01/08/23 14:13 Urine WBC 40-55 /hpf (0-5) H 01/08/23 14:13 Ur Squamous Epith Cells 5-10 /hpf (0-5) H 01/08/23 14:13 Amorphous Sediment Not Reportable 01/08/23 14:13 Urine Bacteria 1+ /hpf (NONE) H 01/08/23 14:13 Urine Mucus 2+ /hpf 01/08/23 14:13 Ur Oval Fat Bodies 1+ /hpf 01/08/23 14:13 Nasal Influ A H1 2009 PCR Not detected (NOT DETECT) 01/07/23 12:00 Adenovirus (PCR) Not detected (NOT DETECT) 01/07/23 12:00 C. pneumoniae DNA (PCR) Not detected (NOT DETECT) 01/07/23 12:00 Coronavirus 229E (PCR) Not detected (NOT DETECT) 01/07/23 12:00 Human Metapneumovir PCR Not detected (NOT DETECT) 01/07/23 12:00 Influenza A (H1) PCR Not detected (NOT DETECT) 01/07/23 12:00 Influenza A (H3) PCR Not detected (NOT DETECT) 01/07/23 12:00 Influenza Type A (PCR) Not detected (NOT DETECT) 01/07/23 12:00 Influenza Type B (PCR) Not detected (NOT DETECT) 01/07/23 12:00 M. pneumoniae (PCR) Not detected (NOT DETECT) 01/07/23 12:00 Parainfluenza 1 (PCR) Not detected (NOT DETECT) 01/07/23 12:00 Parainfluenza 2 (PCR) Not detected (NOT DETECT) 01/07/23 12:00 Parainfluenza 3 (PCR) Not detected (NOT DETECT) 01/07/23 12:00 Parainfluenza 4 (PCR) Not detected (NOT DETECT) 01/07/23 12:00 RSV Type A (PCR) Not detected (NOT DETECT) 01/07/23 12:00 RSV Type B (PCR) Not detected (NOT DETECT) 01/07/23 12:00 Entero/Rhino (PCR) Not detected (NOT DETECT) 01/07/23 12:00 SARS-CoV-2 (PCR) Not detected (NOT DETECT) 01/07/23 12:00 SARS-CoV-2 Ag (Rapid) negative (Negative) 01/10/23 07:59 Vitals Last Vital Signs Temp 98.1 F 01/14/23 12:00 Pulse 80 01/14/23 12:00 Resp 16 01/14/23 12:00 BP 133/84 01/14/23 12:00 Pulse Ox 98 01/14/23 12:00 O2 Del Method Room Air 01/14/23 12:00 Discharge Plan Discharge Patient Disposition: Home Condition: Stable Prescriptions: New aspirin 81 mg Tablet,Delayed Release (Dr/Ec) 81 mg PO DAILY Qty: 30 0RF cefpodoxime 200 mg tablet 200 mg PO BID Qty: 10 0RF Rx Instructions: must administer with a meal/food tamsulosin 0.4 mg capsule 0.4 mg PO DAILY Qty: 30 0RF atorvastatin 40 mg Tablet 40 mg PO BEDTIME Qty: 60 0RF amlodipine 5 mg Tablet 5 mg PO DAILY Qty: 30 0RF Continued finasteride 5 mg tablet 5 mg PO DAILY cholecalciferol (vitamin D3) 2,000 unit tablet 2,000 unit PO DAILY carbidopa-levodopa 25-100 mg tablet 1 tab PO BID minocycline 50 mg capsule 50 mg PO DAILY rasagiline 1 mg tablet 1 mg PO DAILY carbidopa-levodopa 50-200 mg Tablet Extended Release 1 tab PO TID Rx Instructions: divide evenly over waking hours Discontinued ibuprofen 200 mg Tablet 200 mg PO Q6H PRN (Reason: Pain) Discharge Orders: Discharge Order (Routine); Ordered 01/14/23 Ordered By: Kush Adames Referrals: Ismael Lau DO [Primary Care Provider] - Discharge Diet: Cardiac Patient Instructions: Opioid Safety, Pain Management Discharge Attestations Time Spent in Discharge Care*: greater than 30 min Quality Metrics Clinical Quality Measures [ No reported AMI, CVA or VTE this stay] Coding Level of Care Code Acute Code for Chg Fwd Diagnoses Gross hematuria R31.0 Acute stroke due to ischemia I63.9 Parkinsons G20 Encephalopathy acute G93.40 BPH with urinary obstruction N40.1; N13.8 Thrombocytopenia D69.6
--- NOTE | 2023-01-14 13:32 | PC.SOCIAL ---
IMM Update pg 2 of IMM updated and reviewed w/ patient and his . Copy provided and Copy dated, initialed and placed in chart.
[2023-01-14 14:06] LABS: SARS Covid-2 Antigen negative (Negative)
== END 2023-01-14 14:23 | disposition skilled nursing facility (03) | DRG 65 ==
LOC: ER 01-07 02:55 → MEDSURG 01-07 03:33
PROVIDERS: Internal Medicine; Psychiatry & Neurology Neurology; Admitting Provider Student in an Organized Health Care Education/Training Program; Emergency Provider Emergency Medicine; PCP Emergency Medicine Emergency Medical Services; Visit Provider Internal Medicine
DX: I63.9 Cerebral infarction, unspecified (principal); G93.40 Encephalopathy, unspecified; N13.8 Other obstructive and reflux uropathy; G83.14 Monoplegia of lower limb affecting left nondominant side; R31.0 Gross hematuria; T83.098A Other mechanical complication of other urinary catheter, initial encounter; Y73.8 Miscellaneous gastroenterology and urology devices associated with adverse incidents, not elsewhere classified; G20.A1 Parkinson's disease without dyskinesia, without mention of fluctuations; N40.1 Benign prostatic hyperplasia with lower urinary tract symptoms; R39.14 Feeling of incomplete bladder emptying; D69.6 Thrombocytopenia, unspecified; W18.30XA Fall on same level, unspecified, initial encounter; M16.12 Unilateral primary osteoarthritis, left hip; Z11.52 Encounter for screening for COVID-19; Z87.440 Personal history of urinary (tract) infections
CPT/HCPCS: 36415; 51702; 51798; 70450; 70553; 71045; 72131; 72192; 73552; 73590; 76857; 80053; 80069; 81001; 82306; 82533; 82550; 82607; 82746; 83605; 83735; 84207; 84439; 84443; 84481; 85025; 85610; 85730; 87086; 87426; 87486; 87581; 87633; 92523; 92610; 93005; 93306; 93880; 93925; 96372; 97110; 97116; 97161; 97166; 97530; 97535; 99285; A9577; G0378; J0696; J1650; J7030

== ENCOUNTER → 2023-02-14 10:57 | Outpatient (BNVA) | payer OTHER, SELFPAY | PROVIDERS: PCP Emergency Medicine Emergency Medical Services; Visit Provider Psychiatry & Neurology Neurology | DX: I63.81 Other cerebral infarction due to occlusion or stenosis of small artery (principal); R55 Syncope and collapse; G20.A1 Parkinson's disease without dyskinesia, without mention of fluctuations; F51.3 Sleepwalking [somnambulism]; R41.3 Other amnesia | CPT/HCPCS: 99212 ==

== ENCOUNTER → 2023-03-15 11:55 | Outpatient (BNVA) | payer OTHER, SELFPAY | PROVIDERS: PCP Internal Medicine; Visit Provider Psychiatry & Neurology Neurology | DX: R55 Syncope and collapse (principal); R41.3 Other amnesia; F51.3 Sleepwalking [somnambulism] | CPT/HCPCS: 95812; 95816 ==

== ENCOUNTER 2023-03-31 17:35 | Emergency (ER) | payer OTHER, SELFPAY ==
[2023-03-31] VITALS (12 sets, daily range): BP systolic 120–194; BP diastolic 62–118; PULSE 78–99; RESP 17–18; TEMP 36.8; O2SAT 96–98; BMI 26.4
[2023-03-31 17:52] LABS: Basophils % 0.6 %; Eosinophils # 0.2 10^3/uL (0.0-0.8); Eosinophils % 3.1 %; Hematocrit 39.1 % (37-53); Lymphocytes # 1.4 10^3/uL (0.8-4.8); Lymphocytes % 21.3 %; Mean Corpuscular Hemoglobin 29.5 pg (27-33); Mean Corpuscular Volume 89.3 fl (82-101); Mean Platelet Volume 11.2 fL (7.4-10.4); Monocytes # 0.5 10^3/uL (0.2-0.9); Monocytes % 7.5 %; Neutrophils # 4.29 10^3/uL (1.8-7.7); Neutrophils % 67.2 %; Nucleated Red Blood Cells % 0 %; Platelet Count 210 10^3/cmm (157-399); Red Blood Count 4.38 10^6/uL (3.85-5.65); Red Cell Distribution Width 13.3 % (12.1-15.1); White Blood Count 6.39 10^3/uL (3.29-11.43)
[2023-03-31 18:09] LABS: INR 0.96 (0.8-1.2)
[2023-03-31 18:15] LABS: Alanine Aminotransferase < 5 U/L (0-41); Albumin Level 3.5 g/dL (3.5-5.2); Alkaline Phosphatase 68 U/L (40-130); Anion Gap 12.2 (5-19); Aspartate Amino Transferase 14 U/L (0-40); Blood Urea Nitrogen 26 mg/dL (8-23); Calcium 8.9 mg/dL (8.5-10.5); Carbon Dioxide 27 mmol/L (22-29); Chloride 105 mmol/L (98-107); Globulin 2.9 g/dL (1.3-4.6); Glucose 92 mg/dL (65-115); Osmolality Calculated 294 mOsm/kg (285-295); Potassium 4.2 mmol/L (3.5-5.1); Sodium 140 mmol/L (136-145); Total Bilirubin 0.5 mg/dL (0.15-1.2); Total Protein 6.4 g/dL (6.6-8.7)
[2023-03-31 18:20] LABS: Bilirubin Urine Neg (Negative); Blood Urine 3+ (Negative); Glucose Urine UA Norm (Normal); Ketones Urine Negative (Negative); Nitrate Urine Negative (Negative); Protein Urine 1+ (Negative); Specific Gravity, Urine 1.015 (1.005-1.030); Sulfosalicylic Acid Urine Positive (Negative); Urine Appearance Bloody (CLEAR); Urine Color Red (Yellow); pH Urine 8 (5-7)
[2023-03-31 18:21] LABS: Add Urine Culture? Yes; Add Urine Microscopic? YES; Bacteria Urine 1+ /hpf; Leukocyte Esterase Urine Negative (Negative); RBC Urine TOO NUMEROUS TO CNT /hpf (0-2); Urobilinogen Urine 1 mg/dL (Negative)
--- NOTE | 2023-03-31 18:42 | XRR_ITS ---
PROCEDURE INFORMATION: Exam: XR Chest Exam date and time: 03/31/2023 6:51 PM Age: 82 years old Clinical indication: Patient HX: Cough; Weakness TECHNIQUE: Imaging protocol: Radiologic exam of the chest. Views: 1 view. COMPARISON: CR XR chest 1V portable [id number] 01/07/2023 12:30 AM FINDINGS: Lungs: Unremarkable. No consolidation. Pleural spaces: Unremarkable. No pleural effusion. No pneumothorax. Heart/Mediastinum: Unremarkable. No cardiomegaly. Bones/joints: Unremarkable. XR/XR chest 1V portable [id number] IMPRESSION: No acute findings.
--- NOTE | 2023-03-31 19:00 | W.ED.MALEGU ---
HPI - Male Genitourinary General: Chief complaint: Urogenital-Male Stated complaint: HEMATURIA Time Seen by Provider: 03/31/23 17:40 History of Present Illness: Patient presents to the ER from [facility] with hematuria. Patient has severe dementia and is in a lockdown Alzheimer's unit and is unable to answer questions. Patient's is here and she answers questions. She says he has a history of hematuria over the last 6 or so months. Patient's actually seen Dr. Cosby the urologist in [place] within the last week and has a cystoscopy set up in April for this hematuria. Is also noted patient had a CT scan and bladder ultrasound done recently here which showed a possible polypoid bladder mass. Patient is recently moved to a new assisted where he is in the Alzheimer's unit and this is the first time they have seen his hematuria. Patient is not on any anticoagulation Review of Systems General: Reports: ROS unobtainable due to mental status (History and review of systems obtained from ) [facility] PFSH: Medical History Encephalopathy acute Thrombocytopenia Acute stroke due to ischemia Left leg numbness Transient left leg weakness Ataxia Dizziness Weakness generalized Abnormal EKG Orthostatic hypotension Gross hematuria Hypotension (arterial) Nocturia Osteoarthritis of left hip Syncopal episodes Parkinsons BPH with urinary obstruction Incomplete bladder emptying Abnormal PSA Surgical History History of knee replacement History of inguinal hernia repair, bilateral Family History Father Motor vehicle accident Mother , at age 91 Dementia Parkinson disease Grandfather Cancer Denies family history of Diabetes CAD (coronary artery disease) Clotting disorder Chronic kidney disease (CKD) Suicide Anesthesia complication Bleeding disorder Lung disease Stroke Social History Smoking and tobacco/nicotine status: never used tobacco/nicotine Alcohol intake: current Alcohol intake frequency: holidays/special occasions only Substance/Drug Use: never Adopted: No Caregiver/support person: No Lives independently: No Household members: spouse Marital status: Current occupational status: retired Current gender identity: Male Physical Exam Const: COMMON NORMALS: no acute distress, average body habitus and well nourished; limitations (Limited by patient's demented state) HENMT: COMMON NORMALS: normocephalic, atraumatic, external ears normal, Normal external nose present, moist oral mucous membranes and oropharynx normal HEAD & SCALP: normocephalic and atraumatic NOSE: Normal external nose present EXTERNAL EAR: Yes external ears normal Neck/C-Spine: COMMON NORMALS: no JVD Chest: COMMONS NORMALS: normal inspection of the chest and normal palpation of entire chest wall Resp: COMMON NORMALS: normal respiratory effort, No retractions, No use of accessory muscles and clear to auscultation bilaterally AUSCULTATION: clear to auscultation bilaterally Cardio: COMMON NORMALS: no JVD, regular rate, regular rhythm, S1 normal heart sound present, S2 normal heart sound present, No gallops present (Cardio), No clicks present (Cardio), No murmurs present (Cardio) and No rub (Cardio) RATE: regular rate RHYTHM: regular rhythm HEART SOUNDS: S1 normal heart sound present and S2 normal heart sound present GI: COMMON NORMALS: Normal to inspection, nondistended, normoactive bowel sounds present, Soft to palpation, non-tender and No hepatosplenomegaly present PALPATION: Yes Soft to palpation and Yes No hepatosplenomegaly present Course Vital Signs: Vital signs: Vital Signs Temperature 98.3 F 03/31/23 17:39 Pulse Rate 99 03/31/23 20:32 Respiratory Rate 18 03/31/23 20:32 Blood Pressure 126/65 03/31/23 20:30 Pulse Oximetry 97 03/31/23 20:30 Oxygen Delivery Me thod Room Air 03/31/23 20:32 MDM - Male Medical Decision Making Lab work was obtained straight cath urine was obtained as well as chest x-ray. Chest x-ray showed no acute findings. Patient's blood work was benign with a hemoglobin of 12.9, urinalysis showed 3+ blood but negative for leukocyte Estrace and nitrates. Patient already has appointment with urologist. Patient is on anticoagulation. Patient be discharged back to the assisted for observation patient should keep his appointment already scheduled with urologist. Lab Data 03/31/23 17:44 03/31/23 17:44 Radiology Impressions Chest X-Ray 03/31/23 18:42 IMPRESSION: No acute findings. Laboratory Results WBC 6.39 10^3/uL (3.29-11.43) 03/31/23 17:44 RBC 4.38 10^6/uL (3.85-5.65) 03/31/23 17:44 Hgb 12.90 g/dL (11.27-16.99) 03/31/23 17:44 Hct 39.1 % (37-53) 03/31/23 17:44 MCV 89.3 fl (82-101) 03/31/23 17:44 MCH 29.5 pg (27-33) 03/31/23 17:44 MCHC 33.0 g/dL (30-55) 03/31/23 17:44 RDW 13.3 % (12.1-15.1) 03/31/23 17:44 Plt Count 210 10^3/cmm (157-399) 03/31/23 17:44 MPV 11.2 fL (7.4-10.4) H 03/31/23 17:44 Neut % (Auto) 67.2 % 03/31/23 17:44 Lymph % (Auto) 21.3 % 03/31/23 17:44 [place] % (Auto) 7.5 % 03/31/23 17:44 Eos % (Auto) 3.1 % 03/31/23 17:44 Baso % (Auto) 0.6 % 03/31/23 17:44 Neut # (Auto) 4.29 10^3/uL (1.8-7.7) 03/31/23 17:44 Lymph # (Auto) 1.4 10^3/uL (0.8-4.8) 03/31/23 17:44 [place] # (Auto) 0.5 10^3/uL (0.2-0.9) 03/31/23 17:44 Eos # (Auto) 0.2 10^3/uL (0.0-0.8) 03/31/23 17:44 Baso # (Auto) 0.0 10^3/uL (0.0-0.1) 03/31/23 17:44 Nucleated RBC % (auto) 0 % 03/31/23 17:44 Nucleated RBCs # 0.0 /100WBC 03/31/23 17:44 PT 13.00 SECONDS (12.1-14.9) 03/31/23 17:44 INR 0.96 (0.8-1.2) 03/31/23 17:44 Sodium 140 mmol/L (136-145) 03/31/23 17:44 Potassium 4.2 mmol/L (3.5-5.1) 03/31/23 17:44 Chloride 105 mmol/L (98-107) 03/31/23 17:44 Carbon Dioxide 27 mmol/L (22-29) 03/31/23 17:44 Anion Gap 12.2 (5-19) 03/31/23 17:44 BUN 26 mg/dL (8-23) H 03/31/23 17:44 Creatinine 0.6 mg/dL (0.7-1.2) L 03/31/23 17:44 GFR Calculation Not Reportable 03/31/23 17:44 Glucose 92 mg/dL (65-115) 03/31/23 17:44 Calculated Osmolality 294 mOsm/kg (285-295) 03/31/23 17:44 Calcium 8.9 mg/dL (8.5-10.5) 03/31/23 17:44 Total Bilirubin 0.5 mg/dL (0.15-1.2) 03/31/23 17:44 AST 14 U/L (0-40) 03/31/23 17:44 ALT < 5 U/L (0-41) 03/31/23 17:44 Alkaline Phosphatase 68 U/L (40-130) 03/31/23 17:44 Total Protein 6.4 g/dL (6.6-8.7) L 03/31/23 17:44 Albumin 3.5 g/dL (3.5-5.2) 03/31/23 17:44 Globulin 2.9 g/dL (1.3-4.6) 03/31/23 17:44 Urine Color Red (Yellow) A 03/31/23 18:01 Urine Appearance Bloody (CLEAR) A 03/31/23 18:01 Urine pH 8 (5-7) H 03/31/23 18:01 Ur Specific [place] 1.015 (1.005-1.030) 03/31/23 18:01 Urine Protein 1+ (Negative) H 03/31/23 18:01 Urine Glucose (UA) Norm (Normal) 03/31/23 18:01 Urine Ketones Negative (Negative) 03/31/23 18:01 Urine Blood 3+ (Negative) H 03/31/23 18:01 Urine Nitrate Negative (Negative) 03/31/23 18:01 Urine Bilirubin Neg (Negative) 03/31/23 18:01 Prot Sulfosalicylic Acd Positive (Negative) 03/31/23 18:01 Urine Urobilinogen 1 mg/dL (Negative) H 03/31/23 18:01 Ur Leukocyte Esterase Negative (Negative) 03/31/23 18:01 Urine RBC Too numerous to cnt /hpf (0-2) H 03/31/23 18:01 Urine WBC 10-15 /hpf (0-5) H 03/31/23 18:01 Ur Squamous Epith Cells None /hpf (0-5) 03/31/23 18:01 Amorphous Sediment Not Reportable 03/31/23 18:01 Urine Bacteria 1+ /hpf (NONE) H 03/31/23 18:01 All radiology interpretation(s) finalized by discharge Discharge Plan Discharge Patient Disposition: Home Clinical Impression: Hematuria Qualifiers: Hematuria type: gross Qualified Code(s): R31.0 - Gross hematuria Hypertension Qualifiers: Hypertension type: unspecified Qualified Code(s): I10 - Essential (primary) hypertension Condition: Stable Prescriptions: No Action finasteride 5 mg tablet 5 mg PO DAILY cholecalciferol (vitamin D3) 2,000 unit tablet 2,000 unit PO DAILY carbidopa-levodopa 25-100 mg tablet 1 tab PO BID rasagiline 1 mg tablet 1 mg PO DAILY clonazepam [Klonopin] 0.5 mg tablet 0.25 mg PO BEDTIME Qty: 60 0RF carbidopa-levodopa 50-200 mg Tablet Extended Release 1 tab PO TID Rx Instructions: divide evenly over waking hours atorvastatin 40 mg Tablet 40 mg PO BEDTIME Qty: 60 0RF aspirin 81 mg Tablet,Delayed Release (Dr/Ec) 81 mg PO DAILY Qty: 30 0RF Discharge Orders: Discharge ED (Routine); Ordered 03/31/23 Ordered By: Dejan Rodriges Referrals: Greg Pritchard DO [Primary Care Provider] - 1 week Patient Instructions: Hematuria - Male, Hypertension (ED) Activity Restrictions/Additional Instructions: Your workup in ER revealed your chest x-ray was negative for pneumonia, blood work was benign, urinalysis showed blood but no signs of infection. Please keep your appointment already scheduled with your the urologist as this will be the definitive treatment. Otherwise follow-up with your family practice physician physician within the next 7 to 10 days for further evaluation and treatment. Your blood pressure was elevated in the ER please keep an eye on this as you may need to be put back on blood pressure medicine. If you become lightheaded dizzy feel you are in a pass out or have worsening hematuria please return to the ER. Coding Level of Care Code ED Manager Commission for Rajendra Stoll
[2023-03-31] MEDS: hyDRALAzine 20 mg/mL INJ 1 mL IVP (19:16)
--- NOTE | 2023-03-31 20:31 | PC.NURSE ---
CHARGES PLACED BY THIS EDGER AUTOMATIC, PROCEDURE PERFORMED BY PREVIOUS NURSE.
== END 2023-03-31 20:50 | disposition home or self-care (01) ==
PROVIDERS: Emergency Provider Emergency Medicine; PCP Internal Medicine
DX: R31.0 Gross hematuria (principal); I10 Essential (primary) hypertension; Z79.82 Long term (current) use of aspirin; Z86.73 Personal history of transient ischemic attack (TIA), and cerebral infarction without residual deficits; G20.A1 Parkinson's disease without dyskinesia, without mention of fluctuations
CPT/HCPCS: 51701; 71045; 80053; 81001; 85025; 85610; 87086; 96374; 99284; J0360

== ENCOUNTER → 2023-04-25 09:29 | Outpatient (BNVA) | payer OTHER, SELFPAY | PROVIDERS: PCP Internal Medicine; Visit Provider Psychiatry & Neurology Neurology | DX: G20.A1 Parkinson's disease without dyskinesia, without mention of fluctuations (principal); R55 Syncope and collapse; F51.3 Sleepwalking [somnambulism]; R41.3 Other amnesia; R26.81 Unsteadiness on feet; Z86.73 Personal history of transient ischemic attack (TIA), and cerebral infarction without residual deficits; Z79.899 Other long term (current) drug therapy | CPT/HCPCS: 36415; 82140; 82306; 82565; 82607; 82746; 83921; 84439; 84443; 84481; 84520; 99212 ==

== ENCOUNTER → 2023-05-29 12:52 | Outpatient (BNVA) | payer OTHER, SELFPAY | PROVIDERS: PCP Internal Medicine; Visit Provider Psychiatry & Neurology Neurology | DX: G20.A1 Parkinson's disease without dyskinesia, without mention of fluctuations (principal); Z86.73 Personal history of transient ischemic attack (TIA), and cerebral infarction without residual deficits; R41.3 Other amnesia; F51.3 Sleepwalking [somnambulism]; R55 Syncope and collapse; R26.81 Unsteadiness on feet | CPT/HCPCS: 99212 ==